=== PATIENT | male | born 1965 | race Caucasian/White ===

== ENCOUNTER → 2016-11-03 | Outpatient (CLI) | payer OTHER ==
[2016-11-03 17:57] LABS: BLOOD UREA NITROGEN 19 mg/dl (7-18); BUN/CREATININE RATIO 20.1 (10-20); CALCIUM 9.6 mg/dl (8.5-10.1); CARBON DIOXIDE 29 mmol/L (21-32); CHLORIDE 105 mmol/L (98-107); CREATININE 0.96 mg/dl (0.60-1.40); GLUCOSE 98 mg/dl (70-99); SODIUM 140 mmol/L (136-145)
[2016-11-03 18:01] LABS: PROSTATE SPECIFIC ANTIGEN 0.735 ng/ml (0.000-4.000)
== END | disposition home or self-care (01) ==
LOC: C.LABMFLN 11:17
PROVIDERS: ATTEND Family Medicine
DX: M54.2 Cervicalgia (principal); I10 Essential (primary) hypertension; E29.1 Testicular hypofunction; Z12.5 Encounter for screening for malignant neoplasm of prostate

== ENCOUNTER 2020-05-22 15:49 | Observation (INO) ==
[2020-05-22] MEDS ORDERED: KETOROLAC TROMETHAMINE 15 MG/ML VIAL IV ONE (16:17)
[2020-05-22] MEDS ORDERED: SODIUM CHLORIDE 0.9% 1000ML 1,000 ML IV ONE (16:21)
[2020-05-22] MEDS ORDERED: cefTRIAXone SODIUM 1,000 MG/50 ML BAG IV STA (16:21)
--- NOTE | 2020-05-22 16:21 | Emergency Department Note ---
Impression & Plan Cellulitis, Acute foot pain, Febrile ED Provider Note NAME: DENNISE CALDERON AGE: 55 SEX: M : 1965 ARRIVES VIA: Walk-In INFORMANT: Patient ED PROVIDER(S): Nathan Joseph DO CHIEF COMPLAINT: Right leg pain HPI: Patient is a 55-year-old male who presents the ER for right lower extremity pain which has been present for the past 2 days. He denies all other complaints. Been gradually getting worse. He has a fair amount of pain with walking and notes that he can barely walk on it. Today pain is now 8/10. He denies any fevers. Majority of the pain is between the first and second digits. Significantly worse with walking. Denies any head pain, neck pain, chest pain, shortness of breath nausea vomiting diarrhea. No dysuria urgency or frequency. ROS: See above HPI for pertinent positives & negatives. A total of 10 systems reviewed and were otherwise negative. PAST MEDICAL HISTORY:See Below PAST SURGICAL HISTORY:See Below FAMILY HISTORY:See Below SOCIAL HISTORY:See Below HOME MEDICATIONS:See Below ALLERGIES:See Below VITALS:See Below PHYSICAL EXAMINATION: GENERAL: Sitting up in bed, alert, well appearing, well nourished, no distress, non-toxic EYE EXAM: normal conjunctiva. OROPHARYNX: no exudate, no erythema, lips, buccal mucosa, and tongue normal and mucous membranes are moist NECK: supple, no nuchal rigidity, no adenopathy, non-tender LUNGS: Clear to auscultation. Normal chest wall mechanics HEART: no murmurs, S1 normal and S2 normal ABDOMEN: abdomen soft, non-tender, normo-active bowel sounds, no masses, no rebound or guarding. UPPER EXTREMITIES: upper extremities are grossly normal. LOWER EXTREMITIES: Right calf and thigh larger than left. DPs and PTs 2 out of 4. Gross sensation intact. Erythema around the first and second metatarsals with acute tenderness palpation. Achilles is intact. NEURO EXAM: Normal sensorium, cranial nerves II-XII grossly intact, normal speech, no gross weakness of arms, no gross weakness of legs. MEDICAL DECISION MAKING: Patient is a 55-year-old male who presents to the for right lower extremity pain. IV was established blood work was obtained. Labs show no significant leukocytosis or anemia. BMP with mild natremia. LFTs bilirubin was unremarkable. Lactate was normal. Ultrasound of the right lower extremity was negative. X-rays show breakdown of the first metatarsal. Patient did have a temperature 37.9. Patient was given IV Rocephin with this. He does have overlying erythema. Is acutely tender. Do favor that this is likely osteoarthritis as opposed to osteomyelitis. Otherwise patient is clinically tender there and unable to walk. I considered gout but has he was febrile. This is less likely. Patient was given the IV antibiotics and updated bedside discussed with the hospitalist for further evaluation. Triage Nursing notes reviewed. Prior medical records reviewed Vital Signs: reviewed and remarkable for fever Differential diagnosis: Differential diagnosis includes etiologies such as sepsis, UTI, pneumonia, metabolic, electrolyte abnormalities, cardiac sources, intracerebral event, toxicologic, neurological, as well as others were entertained. ER treatment provided: See below Diagnostics interpreted by me: ECG: none Cardiac Monitoring: An order was placed for continuous cardiac monitoring. The monitor shows a rate of 70 with sinus rhythm. Laboratory studies: As stated above and show below. Imaging studies: His Doppler was negative X-rays of the right foot show no acute fractures Consultation(s): Discussed with Valencia Urbano for further evaluation ED COURSE: Procedures: none Critical Care: None Past Med/Surg History Medical History (Updated 05/22/20 @ 19:43 by Nathan Joseph DO) Brain tumor Fibromyalgia HTN (hypertension) Hx of fall Orbit fracture Surgical History (Updated 06/18/18 @ 15:42 by Arabella Cash) H/O brain surgery History of brain shunt Family History Other No known problems Social History Smoking Status: Never smoker Hx Alcohol Use: No Hx Substance Use: No Preferred Language: Wolof Communication Ability: Effective Visual Impairment: No Limitations Rubber Liner Required: No Beliefs That Will Affect Care: Jewish Jewish Beliefs: Taoist marital status: Current Living Situation: Spouse current occupational status: unemployed and disabled current occupation: On disability Feels Safe at Home: Yes Assistive Devices: Walker Allergies Allergies Allergy/AdvReac Type Severity Reaction Status Date / Time gabapentin AdvReac Unknown Did not Verified 05/22/20 19:03 feel well Home Meds Home Medications Medication Instructions Recorded Confirmed lisinopril 40 mg PO QAM 02/24/19 05/22/20 sildenafil (pulm.hypertension) 20 mg PO DIRECTED PRN 02/24/19 05/22/20 aspirin [Aspirin Low Dose] 81 mg PO QAM 05/22/20 05/22/20 atorvastatin 20 mg PO QAM 05/22/20 05/22/20 chlorthalidone 12.5 mg PO QAM 05/22/20 05/22/20 oxycodone-acetaminophen 1 tab PO BID PRN 05/22/20 05/22/20 sertraline 100 mg PO QAM 05/22/20 05/22/20 Results & Data (ED) Vital Signs Vital Signs - 24 hr 05/22/20 15:57 05/22/20 18:16 05/22/20 18:27 Temperature 37.9 C H Temperature Source Oral Pulse Rate 86 71 73 Pulse Rate from SpO2 Sensor 72 74 Respiratory Rate 18 15 14 Respiratory Effort / Characteristics Non-Labored Spontaneous Respiratory Depth Normal Blood Pressure 138/74 136/76 Blood Pressure Mean 95 93 Blood Pressure Position Sitting Pulse Oximetry 95 93 94 Oxygen Delivery Method Room Air Sepsis Recent Fever Within 48 Hours No Sepsis New/Unexplained Change in Mental Status No Sepsis Action Taken by Nursing No Action Required 05/22/20 18:30 Temperature Temperature Source Pulse Rate 72 Pulse Rate from SpO2 Sensor 73 Respiratory Rate 18 Respiratory Effort / Characteristics Respiratory Depth Blood Pressure 142/78 H Blood Pressure Mean 99 Blood Pressure Position Pulse Oximetry 94 Oxygen Delivery Method Room Air Sepsis Recent Fever Within 48 Hours Sepsis New/Unexplained Change in Mental Status Sepsis Action Taken by Nursing Laboratory Data Result diagrams: 05/22/20 16:25 05/22/20 16:25 Lab Results 05/22/20 05/22/20 05/22/20 Range/Units 16:25 16:25 16:25 WBC 8.64 (4.8-10.8) K/uL RBC 4.70 (4.7-6.1) M/uL Hgb 14.5 (14.0-18.0) g/dL Hct 41.4 L (42-52) % MCV 88.1 (80-100) fL MCH 30.9 (25-34) pg MCHC 35.0 (32-36) g/dL RDW Std Deviation 45.2 (36.4-46.3) fL RDW Coeff of Manish 14.0 (11.5-14.5) % Plt Count 229 (130-400) K/uL MPV 9.6 (7.4-10.4) fL Immature Gran % (Auto) 0.6 % Neut % (Auto) 66.6 % Lymph % (Auto) 18.2 % Cass % (Auto) 14.1 % Eos % (Auto) 0.2 % Baso % (Auto) 0.3 % Neut # (Auto) 5.75 (1.4-6.5) K/uL Lymph # (Auto) 1.57 (1.2-3.4) K/uL Cass # (Auto) 1.22 H (0.11-0.59) K/uL Eos # (Auto) 0.02 (0-0.5) K/uL Baso # (Auto) 0.03 (0-0.2) K/uL Immature Gran # (Auto) 0.05 H (0.00-0.02) K/uL Sodium 135 L (136-145) mmol/L Potassium 3.6 (3.5-5.1) mmol/L Chloride 103 (98-107) mmol/L Carbon Dioxide 27 (21-32) mmol/L Anion Gap 6.0 (3-11) BUN 13 (7-18) mg/dl Creatinine 1.24 (0.6-1.4) mg/dl Est Cr Clr Drug Dosing 93.1 ml/min Est GFR ( Amer) 76.4 Est GFR (Non-Af Amer) 66.0 BUN/Creatinine Ratio 10.1 (10-20) Glucose 109 H (70-99) mg/dl Lactate 1.6 (0.4-2.0) mmol/L Calcium 9.5 (8.5-10.1) mg/dl Total Bilirubin 1.1 H (0.2-1) mg/dl AST 21 (15-37) U/L ALT 48 (12-78) U/L Alkaline Phosphatase 79 (45-117) U/L NT-Pro-B Natriuret Pep 28 (0-900) pg/ml Total Protein 7.7 (6.4-8.2) gm/dl Albumin 3.6 (3.4-5.0) gm/dl Globulin 4.1 H (2.5-4.0) gm/dl Albumin/Globulin Ratio 0.9 (0.9-2) Administered Medications Discontinued Medications Sodium Chloride (Nss 1000ml) 1,000 mls @ 999 mls/hr IV .Q1H1M ONE Stop: 05/22/20 17:21 Last Infusion: 05/22/20 17:16 Dose: 0 mls/hr Documented by: [id number] Admin: 05/22/20 16:35 Dose: 999 mls/hr Documented by: [id number] Ceftriaxone Sodium (Rocephin) 1,000 mg in 50 mls @ 100 mls/hr IV NOW STA Stop: 05/22/20 16:50 Last Infusion: 05/22/20 17:16 Dose: 0 mls/hr Documented by: [id number] Admin: 05/22/20 16:34 Dose: 100 mls/hr Documented by: [id number] Ketorolac Tromethamine (Ketorolac Tromethamine 15 Mg/Ml Vial) 15 mg IV NOW ONE Stop: 05/22/20 16:18 Last Admin: 05/22/20 16:33 Dose: 15 mg Documented by: [id number] Discharge Plan Visit Data Chief Complaint: Foot Injury/Pain Stated Complaint: RIGHT FOOT PAIN/SWELLING ED Provider: Nathan Joseph Discharge Problem: Cellulitis, Acute foot pain, Febrile Forms Stand Alone Forms: [facility] Prescriptions Prescriptions: No Action lisinopril 40 mg Tablet 40 mg PO QAM RF: 0 sildenafil (pulm.hypertension) 20 mg Tablet 20 mg PO DIRECTED PRN (Reason: Erectile Dysfunction) RF: 0 atorvastatin 20 mg tablet 20 mg PO QAM RF: 0 sertraline 100 mg tablet 100 mg PO QAM RF: 0 chlorthalidone 25 mg tablet 12.5 mg PO QAM RF: 0 oxycodone-acetaminophen 5-325 mg tablet 1 tab PO BID PRN (Reason: Pain, Severe) RF: 0 aspirin [Aspirin Low Dose] 81 mg Tablet,Delayed Release (Dr/Ec) 81 mg PO QAM RF: 0 Discharge Problem: Cellulitis Qualifiers: Site of cellulitis: unspecified site Qualified Code(s): L03.90 - Cellulitis, unspecified Acute foot pain Qualifiers: Laterality: right Qualified Code(s): M79.671 - Pain in right foot Febrile Qualifiers: Fever type: unspecified Qualified Code(s): R50.9 - Fever, unspecified
[2020-05-22 16:45] LABS: Basophils # (auto) 0.03 K/uL (0-0.2); Basophils % (auto) 0.3 %; Eosinophils # (auto) 0.02 K/uL (0-0.5); Eosinophils % (auto) 0.2 %; Hematocrit (blood only) 41.4 % (42-52); Hemoglobin 14.5 g/dL (14.0-18.0); Immature Granulocytes # (auto) 0.05 K/uL (0.00-0.02); Immature Granulocytes % (auto) 0.6 %; Lymphocytes # (auto) 1.57 K/uL (1.2-3.4); Lymphocytes % (auto) 18.2 %; Mean Corpuscular Hemoglobin 30.9 pg (25-34); Mean Corpuscular Volume 88.1 fL (80-100); Mean Platelet Volume 9.6 fL (7.4-10.4); Monocytes # (auto) 1.22 K/uL (0.11-0.59); Monocytes % (auto) 14.1 %; Neutrophils # (auto) 5.75 K/uL (1.4-6.5); Neutrophils % (auto) 66.6 %; Platelet Count 229 K/uL (130-400); RDW Standard Deviation 45.2 fL (36.4-46.3); White Blood Count 8.64 K/uL (4.8-10.8)
--- NOTE | 2020-05-22 16:50 | XRay Report ---
XR foot RT min 3V routine CLINICAL HISTORY: Right foot pain TRAUMA COMPARISON: None. DISCUSSION: Advanced arthritic changes are present the level the first metatarsal phalangeal joint wi th bony erosive change. There is soft tissue swelling. No acute fractures are visualized. There are n o dislocations. There is moderate dorsal soft tissue swelling. There is plantar calcaneal spurring. T here are calcifications in the region of the distal Achilles tendon. IMPRESSION: 1. No acute fractures 2. Dorsal soft tissue swelling 3. Distal Achilles calcifications suggesting chronic tendinopathy 4. Plantar calcaneal spur 5. Arthritic changes involving the first metatarsal phalangeal joint with bony erosive change ACT 112: Negative or not required by law. Electronically signed by: Tin Koch M.D. 05/22/2020 4:49 PM
[2020-05-22 17:06] LABS: Albumin Level 3.6 gm/dl (3.4-5.0); BUN Creatinine Ratio 10.1 (10-20); Calcium 9.5 mg/dl (8.5-10.1); Creatinine Clr Calc Pharmacy 93.1 ml/min; Est GFR (African American) 76.4; Potassium 3.6 mmol/L (3.5-5.1)
[2020-05-22 17:11] LABS: Albumin Globulin Ratio 0.9 (0.9-2); Bilirubin,Total 1.1 mg/dl (0.2-1); Globulin 4.1 gm/dl (2.5-4.0); Total Protein 7.7 gm/dl (6.4-8.2)
--- NOTE | 2020-05-22 17:50 | Ultrasound Report ---
US venous doppler LE RT CLINICAL HISTORY: Right lower extremity pain and swelling COMPARISON STUDY: No previous studies for comparison. FINDINGS: Real-time and color flow Doppler imaging were performed. Flow was seen within the femoral, popliteal and calf veins with no intraluminal thrombus demonstrated. The saphenous vein is patent. Th ere is focal edema at the level of the dorsal aspect of the foot with a small fluid collection measur ing 13 x 7 x 7 mm. IMPRESSION: No evidence of right lower extremity DVT. ACT 112: Negative or not required by law. Electronically signed by: Tin Koch M.D. 05/22/2020 5:49 PM
--- NOTE | 2020-05-22 20:34 | Communication Note ---
Date of Service: May 22, 2020 Attending Addendum: care coordinated with KELVIN james please refer to her notes for full details, I agree with her notes patient seen and examined, records reviewed by myself as well on exam, patient seen resting, sitting up, not in distress Patient's significant other at the bedside Patient reports moderate to severe pain in the right foot, unable to walk secondary to pain Also has fever/chills at home Reports slow improvement with left foot pain after twisting the left foot 3 weeks ago no other symptoms VS noted and reviewed General- oriented x 3, not in distress, speaks in sentences with no effort or accessory muscle use Head- atraumatic Eyes- PERRL, EOMI, anicteric ENT- oropharynx clear Neck- supple, no JVD, no adenopathy, no thyromegaly; carotids +2/2, no bruits appreciated Lungs- clear to auscultation bilaterally, no rales/wheezes Heart- normal rate, regular rhythm; no murmur, no gallop, no rub appreciated Abdomen- normal bowel sounds, nondistended, soft, nontender, no masses or hepatosplenomegaly Extremities-right foot: Significant edema, moderate erythema, mild warmth, moderate tenderness, full range of motion secondary to pain cracked skin on the heel Right lower extremity: Mild edema, no erythema/warmth/tenderness left foot: Mild edema, no erythema/warmth, poor range of motion secondary to pain Neuro- alert, oriented x 3; CN 2-12 grossly intact; motor 5/5 bilaterally;sensation 100% on all extremities; no other gross focal neurologic deficits skin- warm & dry WBC 8.6 Hg 14.5 Crea 1.2 Foot x-ray: 1. No acute fractures 2. Dorsal soft tissue swelling 3. Distal Achilles calcifications suggesting chronic tendinopathy 4. Plantar calcaneal spur 5. Arthritic changes involving the first metatarsal phalangeal joint with bony erosive change ASSESSMENT AND PLAN Right foot cellulitis No sepsis Blood cultures: Pending CT foot with contrast ordered to rule out abscess Start empiric Dapto plus Zosyn IV fluids Persistent left foot pain Started after patient twisted his left foot and fell No fractures per initial x-ray per patient CT of the left foot also ordered Ortho consulted Hypertension Continue lisinopril other diagnoses and plan of care as per RISK ANALYST Valencia love Plan of care discussed in detail at length with patient and his significant other All questions were answered They are understanding, agreeable, comfortable with plan of care Bob Zaragoza MD
--- NOTE | 2020-05-22 20:37 | History & Physical Report ---
Date of Service May 22, 2020 Assessment & Plan (1) Cellulitis of right foot: -Admit to [facility] -Patient presenting from home with right foot pain and swelling x3 days -No history of trauma -Right foot x-ray negative for acute findings, RLE venous Doppler negative for DVT -Low-grade temp 37.9, no other signs of sepsis -S/p ceftriaxone in the ED, will start IV Dapto and Zosyn for now -consider gout if little improvement after antibiotics -Blood cultures -Right foot CT for further evaluation (2) Left ankle swelling: S/P left ankle sprain ~3 weeks ago -Has been following with podiatry at [facility] -Has not been compliant with boot -Given persistent swelling, check CT -Ortho consult (3) HTN (hypertension): -BP controlled, continue lisinopril and chlorthalidone (4) DVT prophylaxis: -SQ Lovenox History of Present Illness Chief Complaint: Right foot pain Primary Care Provider: Dr. Valencia 55-year-old male with PMH HTN, HLD, history of astrocytoma s/p resection, problems listed below who presents to the ED for evaluation of right foot pain. Patient reports his symptoms began about 3 days ago ports the pain initially began in his heel. Pain has now progressed throughout the plantar surface of the foot and into the right great toe. There also has been progressive swelling. Patient is unable to bear weight on the foot. He denies any known injury to the foot. No fevers or chills. Patient had a left ankle sprain about 3 weeks ago and was following with podiatry at [facility]. He was instructed to wear a boot however has not been wearing it. Swelling to the left ankle and foot has persisted however pain has been slowly improving over the past few weeks. Patient denies chest pain or shortness of breath. No lightheadedness, dizziness, diaphoresis, syncopal events. Denies abdominal pain, nausea, vomiting, diarrhea. No urinary symptoms. In ED, patient has low- grade fever of 37.9. No leukocytosis, patient is hemodynamic stable. Right foot x-ray is negative for acute findings. RLE Doppler negative for DVT. Patient was given IVF, IV ketorolac, IV ceftriaxone. Allergies Allergy/AdvReac Type Severity Reaction Status Date / Time gabapentin AdvReac Unknown Did not Verified 05/22/20 19:03 feel well Home Medications Home Medications Medication Instructions Recorded Confirmed Type lisinopril 40 mg PO QAM 02/24/19 05/22/20 History sildenafil (pulm.hypertension) 20 mg PO DIRECTED PRN 02/24/19 05/22/20 Histor y aspirin [Aspirin Low Dose] 81 mg PO QAM 05/22/20 05/22/20 History atorvastatin 20 mg PO QAM 05/22/20 05/22/20 History chlorthalidone 12.5 mg PO QAM 05/22/20 05/22/20 History oxycodone-acetaminophen 1 tab PO BID PRN 05/22/20 05/22/20 History sertraline 100 mg PO QAM 05/22/20 05/22/20 History Past Med/Surg History Medical History Dyslipidemia History of astrocytoma HTN (hypertension) Surgical History H/O brain surgery H/O inguinal hernia repair History of brain shunt Family History Father Hypertension Mother Hypertension Social History Smoking Status: Never smoker Hx Alcohol Use: No Hx Substance Use: No Preferred Language: Uzbek Communication Ability: Effective Visual Impairment: No Limitations Wet End Tester Required: No Beliefs That Will Affect Care: Taoism Taoism Beliefs: Hinduism marital status: Current Living Situation: Spouse current occupational status: unemployed and disabled current occupation: On disability Feels Safe at Home: Yes Assistive Devices: Walker Review of Systems Review of Systems: ROS per HPI, all other systems reviewed and negative Physical Exam Physical Exam: Please refer to Dr. Zaragoza's addendum for physical exam. Results & Data Results & Data ([facility]) Vital Signs (Past 12 Hours) Vital Signs Temp Pulse Resp BP Pulse Ox 05/22/20 18:30 72 18 142/78 H 94 05/22/20 18:27 73 14 94 05/22/20 18:16 71 15 136/76 93 05/22/20 15:57 37.9 C H 86 18 138/74 95 Laboratory Results Short CBC 05/22/20 Range/Units 16:25 WBC 8.64 (4.8-10.8) K/uL Hgb 14.5 (14.0-18.0) g/dL Hct 41.4 L (42-52) % Plt Count 229 (130-400) K/uL BMP 05/22/20 16:25 Sodium 135 L Potassium 3.6 Chloride 103 Carbon Dioxide 27 BUN 13 Creatinine 1.24 Glucose 109 H Calcium 9.5 Liver Function 05/22/20 Range/Units 16:25 Total Bilirubin 1.1 H (0.2-1) mg/dl AST 21 (15-37) U/L ALT 48 (12-78) U/L Alkaline Phosphatase 79 (45-117) U/L Albumin 3.6 (3.4-5.0) gm/dl Diagnostic Findings RIGHT FOOT X-RAY IMPRESSION: 1. No acute fractures 2. Dorsal soft tissue swelling 3. Distal Achilles calcifications suggesting chronic tendinopathy 4. Plantar calcaneal spur 5. Arthritic changes involving the first metatarsal phalangeal joint with bony erosive change RLE VENOUS DOPPLER IMPRESSION: No evidence of right lower extremity DVT. Code Status & VTE Plan Code Status Patient is a full as per Dr. Zaragoza's discussion with him. VTE Prophylaxis Plan VTE Prophylaxis will be ordered: Yes (1) HTN (hypertension) Hypertension type: unspecified Qualified Code(s): I10 - Essential (primary) hypertension
[2020-05-22] MEDS ORDERED: IOVERSOL 100ml IV ONE (20:49)
--- NOTE | 2020-05-22 21:23 | CT Scan Report ---
CT foot RT w con CT DOSE: 274.45 mGy.cm CLINICAL HISTORY: swelling, cellulitis TECHNIQUE: Patient was scanned in a dynamic helical fashion during intravenous administration of 93 c c of Optiray 320. The study was reviewed in the axial, sagittal, and coronal planes. A dose lowering technique was utilized adhering to the principles of ALARA. COMPARISON STUDY: X-ray study dated 05/22/2020 FINDINGS: There is diffuse soft tissue edema. There is enlargement of the Achilles tendon indicative of Karina s tendinopathy. There is calcaneal spurring. No acute fractures are visualized. There are advanced arthritic changes at the level the first metatarsal phalangeal joint with osteophy tic spurring and subchondral cyst formation. There are no destructive changes to indicate osteomyelitis. IMPRESSION: 1. Diffuse soft tissue edema. No evidence of abscess 2. No acute fractures 3. Achilles tendinopathy 4. Advanced arthritic changes the level the first metatarsal phalangeal joint with osteophytic spurri ng and subchondral cyst formation ACT 112: Negative or not required by law. Electronically signed by: Tin Koch M.D. 05/22/2020 9:21 PM
[2020-05-22] MEDS ORDERED: oxyCODONE/ACETAMINOPHEN 5mg/325mg TAB PO PRN (21:24)
[2020-05-22] MEDS ORDERED: MoRPHine SULFATE 4 MG/ML 1 ML CARP\\VIAL IV PRN (21:24)
[2020-05-22] MEDS ORDERED: PIPERACILL/TAZOBAC CONSULT ACTIVE PRN (21:24)
--- NOTE | 2020-05-22 21:35 | CT Scan Report ---
CT foot LT w con CT DOSE: CLINICAL HISTORY: Left foot swelling TECHNIQUE: The patient was scanned in a dynamic helical fashion during intravenous administration of 93 cc of Optiray 320. Sagittal and coronal reformatted images were acquired A dose lowering techniqu e was utilized adhering to the principles of ALARA. COMPARISON STUDY: None. FINDINGS: There is soft tissue edema. The Achilles tendon is enlarged with calcifications consistent with Achilles tendinopathy. There are no fluid collections to indicate an abscess. There is no evidence of osteomyelitis. There are no acute fractures. IMPRESSION: 1. Diffuse soft tissue edema 2. No evidence of abscess 3. No acute fractures 4. Achilles tendinopathy ACT 112: Negative or not required by law. Electronically signed by: Tin Koch M.D. 05/22/2020 9:34 PM
[2020-05-22] MEDS: ENOXAPARIN INJ 40 MG/0.4 ML SYR SQ SCH (21:58)
[2020-05-22] MEDS: SODIUM CHLORIDE 0.9% 1000ML 1,000 ML IV SCH (21:58)
[2020-05-22] MEDS ORDERED: PIPERACILLIN/TAZOBACTAM 4.5 GM in DEXTROSE 5% 100 ML IV ONE (22:00)
[2020-05-22] MEDS ORDERED: DAPTOmycin 375 MG in SYRINGE 0 ML IV SCH (22:00)
[2020-05-23] MEDS: PIPERACILLIN/TAZOBACTAM 4.5 GM in DEXTROSE 5% 100 ML IV SCH ×3 (04:18→20:21)
[2020-05-23 06:03] LABS: Hematocrit (blood only) 36.6 % (42-52); Hemoglobin 12.5 g/dL (14.0-18.0); Mean Corpuscular Hgb Conc 34.2 g/dL (32-36); Mean Platelet Volume 9.6 fL (7.4-10.4); Platelet Count 221 K/uL (130-400); Red Blood Count 4.16 M/uL (4.7-6.1); White Blood Count 7.29 K/uL (4.8-10.8)
[2020-05-23 06:31] LABS: BUN Creatinine Ratio 14.2 (10-20); Calcium 8.7 mg/dl (8.5-10.1); Est GFR (African American) 93.5; Est GFR (Non-African American) 80.7; Potassium 3.5 mmol/L (3.5-5.1)
[2020-05-23] MEDS: SODIUM CHLORIDE 0.9% 1000ML 1,000 ML IV SCH ×2 (08:13→18:27)
[2020-05-23] MEDS: SERTRALINE HCL 100 MG TABLET PO SCH (08:22)
[2020-05-23] MEDS: ADVANCED PROBIOTIC 1250 MG CAPSULE PO SCH (08:22)
[2020-05-23] MEDS: ASPIRIN 81 MG ECTAB PO SCH (08:22)
[2020-05-23] MEDS: lisinopril 40 MG TAB PO SCH (08:22)
[2020-05-23] MEDS ORDERED: CHLORTHALIDONE 25 MG TAB PO SCH (09:00)
[2020-05-23] MEDS ORDERED: predniSONE 20 MG TAB PO ONE (15:00)
--- NOTE | 2020-05-23 15:59 | Orthopedic Consultation ---
Date of Consultation May 23, 2020 Assessment & Plan (1) Left Achilles tendinitis: Likely left Achilles tendinitis. With the patient's amount of pain he is having with palpation at the insertion site, consider starting an anti- inflammatory like Celebrex daily. Consider physical therapy to help with teaching the patient stretches to help alleviate his discomfort. I will have Dr. Liao review the CT scans and see the patient this afternoon. History of Present Illness Reason for Consultation: Left ankle pain Attending Physician: Eliseo Velarde MD History of Present Illness Patient is a 55-year-old male with PMH HTN, HLD, history of astrocytoma s/p resection that [facility] During his [facility], he had complained of left ankle pain as well. Patient states that he had injured his left ankle approximately 3 weeks ago that resulted in a sprain. He states that there was a small avulsion type chip fracture noted on films that were taken in [place] but no other bony injury. He was prescribed a high tide walking boot however the patient has not been using it secondary to worsening his gait disturbance. Patient states that he has balance issues since he has had his astrocytoma removed and uses a walker in the house and a walking stick when he is outside on a limited basis. He states that he has had problems with his feet ever since he has had gait disturbances. Today he notes that he has had much less pain in the left ankle and for the first time was able to weight-bear on the left ankle late this morning. He states overall it is feeling better. Allergies Allergy/AdvReac Type Severity Reaction Status Date / Time gabapentin AdvReac Unknown Did not Verified 05/22/20 19:03 feel well Home Medications Home Medications Medication Instructions Recorded Confirmed Type lisinopril 40 mg PO QAM 02/24/19 05/22/20 History sildenafil (pulm.hypertension) 20 mg PO DIRECTED PRN 02/24/19 05/22/20 History aspirin [Aspirin Low Dose] 81 mg PO QAM 05/22/20 05/22/20 History atorvastatin 20 mg PO QAM 05/22/20 05/22/20 History chlorthalidone 12.5 mg PO QAM 05/22/20 05/22/20 History oxycodone-acetaminophen 1 tab PO BID PRN 05/22/20 05/22/20 History sertraline 100 mg PO QAM 05/22/20 05/22/20 History Patient History Medical History Dyslipidemia History of astrocytoma HTN (hypertension) Surgical History H/O brain surgery H/O inguinal hernia repair History of brain shunt Family History Father Hypertension Mother Hypertension Social History Smoking Status: Never smoker Second Hand Exposure: No; Do You Dip or Chew Tobacco: No; Tobacco Cessation Education Requested by Patient: No Hx Alcohol Use: Yes Alcohol type: beer Hx Substance Use: No Preferred Language: Australian Communication Ability: Effective Visual Impairment: No Limitations Central Services Tech Required: No Beliefs That Will Affect Care: None marital status: Current Living Situation: Spouse current occupational status: unemployed and disabled current occupation: On disability Other Information That Helps Us Care for You: No Feels Safe at Home: Yes Assistive Devices: Walker Review of Systems Review of Systems: All systems reviewed & are unremarkable except as noted in HPI & below Physical Exam Physical Exam: Patient is awake, alert, and oriented x3. Focusing the exam on the left lower extremity, I removed his sock on the left foot. He has minimal swelling around the ankle at this time and there is no areas of ecchymosis noted. No erythema noted. He is nontender on palpation over the medial and lateral malleoli. He is able to take the ankle through active flexion and plantarflexion without pain. On palpation of his Achilles tendon, I cannot appreciate any tears and is nontender until you get out to the Achilles tendon insertion into the calcaneus. On palpation of this area the patient does have moderate pain. No pain on palpation of his left heel and plantar surface. No pain on the dorsum of the foot. Forced dorsiflexion does essentially accentuate the pain at the Achilles insertion somewhat. Results & Data ([facility]) Vital Signs (Past 12 Hours) Vital Signs Temp Pulse Resp BP Pulse Ox 05/23/20 10:00 117/71 05/23/20 08:25 37.7 C H 75 17 174/82 H 94 Diagnostic Findings Patient: DENNISE CALDERON AAdmit Date: 05/22/20 MR#: [id number]: [id number] [place] [address] Acct ID:[id number]: Date: [address] Zip: [place] [address] Age: 55Location: 3E Sex: MRoom[facility]Bed: [facility] Att Phy: Bob Zaragoza, HUGOiagnosis: RIGHT FOOT PAIN Mignon Phy: PCP,Clemrvice Date: 05/22/20 Fam Phy: Dagoberto Valencia MDInterpreting Phy: Tin Koch MD Admit Phy: Bob Zaragoza MD Ordering Phy: Valencia Urbano cc: ~ CT foot LT w con CT DOSE: CLINICAL HISTORY: Left foot swelling TECHNIQUE: The patient was scanned in a dynamic helical fashion during intravenous administration of 93 cc of Optiray 320. Sagittal and coronal re formatted images were acquired A dose lowering technique was utilized adhering to the principles of ALARA. COMPARISON STUDY: None. FINDINGS: There is soft tissue edema. The Achilles tendon is enlarged with calcifications consistent with Achilles tendinopathy. There are no fluid collections to indicate an abscess. There is no evidence of osteomyelitis. There are no acute fractures. IMPRESSION: 1. Diffuse soft tissue edema 2. No evidence of abscess 3. No acute fractures 4. Achilles tendinopathy
--- NOTE | 2020-05-23 16:19 | Hospitalist Progress Note ---
Date of Service May 23, 2020 Assessment & Plan (1) Cellulitis of right foot: Right lower extremity cellulitis Left Achilles tendinitis -Right Foot CT:Diffuse soft tissue edema. No evidence of abscess. No acute fractures. Achilles tendinopathy. Advanced arthritic changes the level the first metatarsal phalangeal joint with osteophytic spurring and subchondral cyst formation -Left Foot CT:Diffuse soft tissue edema. No evidence of abscess. No acute fractures. Achilles tendinopathy -Venous Doppler:No evidence of right lower extremity DVT. -MRSA screen: Negative -Blood Culture:Pending -Continue Zosyn -Transition Daptomycin to Doxycycline -PT/OT -Start low dose prednisone -Appreciate Orthopedics Input (2) Left ankle swelling: S/P left ankle sprain ~3 weeks ago Follows with podiatry at [facility] Not been compliant with boot Management as above (3) HTN (hypertension): BP Variable continue lisinopril and chlorthalidone (4) DVT prophylaxis: SQ Lovenox Admission and Anticipated Discharge Date Admission Date: May 22, 2020 Subjective Patient is seen and examined at bedside Has low-grade fever this morning Leg pain, erythema improving Still has leg swelling Denies chest pain, SOB, dizziness, nausea, abdominal pain Family at bedside Offers no other complaints Review of Systems Review of Systems: All systems reviewed & are unremarkable except as noted in HPI & below Physical Exam Physical Exam: Physical Exam: Vitals signs as noted above General Appearance:Moderately built and nourished, no apparent distress Head: normocephalic, Atraumatic Eyes: normal inspection, EOMI Neck: supple, Trachea midline Respiratory/Chest: Normal breath sounds, CTA Cardiovascular: S1, S2, No murmur Abdomen/GI:Soft, Non tender, Bowel sounds present Extremities/Musculoskelatal:normal inspection, Right leg swelling Neurologic/Psych:AAOX3, grossly no focal neurological deficits Skin: normal color, warm Results & Data Results & Data ([facility]) Vital Signs (Past 12 Hours) Vital Signs Temp Pulse Resp BP Pulse Ox 05/23/20 16:05 37 C 70 20 130/85 96 05/23/20 10:00 117/71 05/23/20 08:25 37.7 C H 75 17 174/82 H 94 Laboratory Results Short CBC 05/22/20 05/23/20 Range/Units 16:25 05:41 WBC 8.64 7.29 (4.8-10.8) K/uL Hgb 14.5 12.5 L (14.0-18.0) g/dL Hct 41.4 L 36.6 L (42-52) % Plt Count 229 221 (130-400) K/uL BMP 05/22/20 05/23/20 16:25 05:41 Sodium 135 L 139 Potassium 3.6 3.5 Chloride 103 107 Carbon Dioxide 27 25 BUN 13 15 Creatinine 1.24 1.05 Glucose 109 H 105 H Calcium 9.5 8.7 Liver Function 05/22/20 Range/Units 16:25 Total Bilirubin 1.1 H (0.2-1) mg/dl AST 21 (15-37) U/L ALT 48 (12-78) U/L Alkaline Phosphatase 79 (45-117) U/L Albumin 3.6 (3.4-5.0) gm/dl (1) HTN (hypertension) Hypertension type: unspecified Qualified Code(s): I10 - Essential (primary) hypertension
[2020-05-23] MEDS ORDERED: MoRPHine SULFATE 4 MG/ML 1 ML CARP\\VIAL IV PRN (17:17)
[2020-05-23] MEDS: oxyCODONE/ACETAMINOPHEN 5mg/325mg TAB PO PRN (17:24)
[2020-05-23] MEDS: DOXYCYCLINE HYCLATE 100 MG CAP PO SCH (20:22)
[2020-05-23] MEDS: ENOXAPARIN INJ 40 MG/0.4 ML SYR SQ SCH (21:12)
[2020-05-24] MEDS: ACETAMINOPHEN 325 MG TAB PO PRN ×2 (00:18→13:20)
[2020-05-24] MEDS: PIPERACILLIN/TAZOBACTAM 4.5 GM in DEXTROSE 5% 100 ML IV SCH ×3 (03:21→20:31)
[2020-05-24 06:24] LABS: Hemoglobin 12.8 g/dL (14.0-18.0); Mean Corpuscular Hemoglobin 30.1 pg (25-34); Mean Corpuscular Hgb Conc 34.6 g/dL (32-36); Mean Corpuscular Volume 87.1 fL (80-100); Mean Platelet Volume 9.5 fL (7.4-10.4); Platelet Count 241 K/uL (130-400); RDW Coefficient of Variation 13.8 % (11.5-14.5); RDW Standard Deviation 43.6 fL (36.4-46.3); Red Blood Count 4.25 M/uL (4.7-6.1)
[2020-05-24 06:52] LABS: BUN Creatinine Ratio 16.5 (10-20); Est GFR (African American) 93.5; Est GFR (Non-African American) 80.7; Magnesium 2.1 mg/dl (1.8-2.4); Potassium 3.8 mmol/L (3.5-5.1)
[2020-05-24] MEDS: oxyCODONE/ACETAMINOPHEN 5mg/325mg TAB PO PRN ×2 (07:27→16:24)
[2020-05-24] MEDS: DOXYCYCLINE HYCLATE 100 MG CAP PO SCH ×2 (08:42→20:32)
[2020-05-24] MEDS: lisinopril 40 MG TAB PO SCH (08:42)
[2020-05-24] MEDS: SERTRALINE HCL 100 MG TABLET PO SCH (08:43)
[2020-05-24] MEDS: ASPIRIN 81 MG ECTAB PO SCH (08:43)
[2020-05-24] MEDS: ADVANCED PROBIOTIC 1250 MG CAPSULE PO SCH (08:43)
[2020-05-24] MEDS: ATORVASTATIN 20 MG TAB PO SCH (08:59)
[2020-05-24] MEDS ORDERED: predniSONE 20 MG TAB PO SCH (09:00)
--- NOTE | 2020-05-24 12:44 | Orthopedic Progress Note ---
Date of Service May 24, 2020 Assessment & Plan (1) Left Achilles tendinitis: Pain in his left foot is consistent with Achilles tendinopathy recommend therapy, stretching, and anti-inflammatories. (2) Cellulitis of right foot: His right foot swelling seems to have improved with antibiotics and steroids. No evidence of abscess on clinical exam or imaging. His pain is much improved. No indication for surgical intervention at this time. Admission and Anticipated Discharge Date Admission Date: May 23, 2020 Subjective Patient reports that his right foot pain and swelling have significantly improved. He complains that his left heel is now more painful than his right this morning. He seems to have improved with steroids. Physical Exam Physical Exam: Examination of the right foot reveals some diffuse soft tissue swelling and edema, but no significant warmth, erythema, or induration. No fluctuance anywhere around the foot. Very mild diffuse tenderness to palpation. No focal tenderness. Examination of the left foot reveals no significant diffuse swelling. He is very focally tender to palpation at the Achilles tendon insertion into the calcaneus. Results & Data ([facility]) Vital Signs (Past 12 Hours) Vital Signs Temp Pulse Resp BP Pulse Ox 05/24/20 07:03 36.4 C L 60 19 145/93 H 95
--- NOTE | 2020-05-24 16:32 | Hospitalist Progress Note ---
Date of Service May 24, 2020 Assessment & Plan (1) Cellulitis of right foot: Right lower extremity cellulitis Left Achilles tendinitis -Right Foot CT:Diffuse soft tissue edema. No evidence of abscess. No acute fractures. Achilles tendinopathy. Advanced arthritic changes the level the first metatarsal phalangeal joint with osteophytic spurring and subchondral cyst formation -Left Foot CT:Diffuse soft tissue edema. No evidence of abscess. No acute fractures. Achilles tendinopathy -Venous Doppler:No evidence of right lower extremity DVT. -MRSA screen: Negative -Blood Culture:No growth to date -Continue Zosyn for now -Transitioned Daptomycin to Doxycycline -Continue PT/OT -Taper off of prednisone as able -Appreciate Orthopedics Input -Continue Stretching for tendinopathy (2) Left ankle swelling: S/P left ankle sprain ~3 weeks ago Follows with podiatry at [facility] Not been compliant with boot Management as above (3) HTN (hypertension): BP slightly elevated continue lisinopril and chlorthalidone (4) DVT prophylaxis: SQ Lovenox Admission and Anticipated Discharge Date Admission Date: May 23, 2020 Subjective Patient is seen and examined at bedside Afebrile today Leg pain continues to improve Leg swelling improved as well Discussed with Orthopedics today Poor sleep overnight Denies chest pain, SOB, dizziness, nausea, abdominal pain Review of Systems Review of Systems: All systems reviewed & are unremarkable except as noted in HPI & below Physical Exam Physical Exam: Physical Exam: Vitals signs as noted above General Appearance:Moderately built and nourished, no apparent distress Head: normocephalic, Atraumatic Eyes: normal inspection, EOMI Neck: supple, Trachea midline Respiratory/Chest: Normal breath sounds, CTA Cardiovascular: S1, S2, No murmur Abdomen/GI:Soft, Non tender, Bowel sounds present Extremities/Musculoskelatal:normal inspection, Right leg swelling improving Neurologic/Psych:AAOX3, grossly no focal neurological deficits Skin: normal color, warm Results & Data Results & Data ([facility]) Vital Signs (Past 12 Hours) Vital Signs Temp Pulse Resp BP Pulse Ox 05/24/20 16:10 36.8 C 68 18 155/98 H 95 05/24/20 07:03 36.4 C L 60 19 145/93 H 95 Laboratory Results Short CBC 05/24/20 Range/Units 05:58 WBC 6.70 (4.8-10.8) K/uL Hgb 12.8 L (14.0-18.0) g/dL Hct 37.0 L (42-52) % Plt Count 241 (130-400) K/uL BMP 05/24/20 05:58 Sodium 140 Potassium 3.8 Chloride 109 H Carbon Dioxide 24 BUN 17 Creatinine 1.05 Glucose 115 H Calcium 9.0 (1) HTN (hypertension) Hypertension type: unspecified Qualified Code(s): I10 - Essential (primary) hypertension
[2020-05-24] MEDS: ENOXAPARIN INJ 40 MG/0.4 ML SYR SQ SCH (22:22)
[2020-05-25] MEDS: PIPERACILLIN/TAZOBACTAM 4.5 GM in DEXTROSE 5% 100 ML IV SCH ×2 (04:08→13:01)
[2020-05-25] MEDS: oxyCODONE/ACETAMINOPHEN 5mg/325mg TAB PO PRN (04:15)
[2020-05-25 06:51] LABS: BUN Creatinine Ratio 18.9 (10-20); Calcium 9.3 mg/dl (8.5-10.1); Creatinine Clr Calc Pharmacy 106.9 ml/min; Est GFR (African American) 87.4; Est GFR (Non-African American) 75.4; Potassium 3.3 mmol/L (3.5-5.1)
[2020-05-25] MEDS: ADVANCED PROBIOTIC 1250 MG CAPSULE PO SCH (08:42)
[2020-05-25] MEDS: ATORVASTATIN 20 MG TAB PO SCH (08:42)
[2020-05-25] MEDS: lisinopril 40 MG TAB PO SCH (08:42)
[2020-05-25] MEDS: ASPIRIN 81 MG ECTAB PO SCH (08:42)
[2020-05-25] MEDS: SERTRALINE HCL 100 MG TABLET PO SCH (08:43)
[2020-05-25] MEDS: DOXYCYCLINE HYCLATE 100 MG CAP PO SCH (08:43)
[2020-05-25] MEDS ORDERED: POTASSIUM CHLORIDE 20 MEQ TABCR PO ONE (08:56)
[2020-05-25] MEDS ORDERED: predniSONE 10 MG TABLET PO SCH (09:00)
--- NOTE | 2020-05-25 12:28 | Hospitalist Progress Note ---
Date of Service May 25, 2020 Assessment & Plan (1) Cellulitis of right foot: Right lower extremity cellulitis Left Achilles tendinitis -Right Foot CT:Diffuse soft tissue edema. No evidence of abscess. No acute fractures. Achilles tendinopathy. Advanced arthritic changes the level the first metatarsal phalangeal joint with osteophytic spurring and subchondral cyst formation -Left Foot CT:Diffuse soft tissue edema. No evidence of abscess. No acute fractures. Achilles tendinopathy -Venous Doppler:No evidence of right lower extremity DVT. -MRSA screen: Negative -Blood Culture:No growth to date -Received Zosyn .Transition to Augmentin -Transitioned Daptomycin to Doxycycline -Continue PT/OT-Recommends to return home -Taper off of prednisone as able -Appreciate Orthopedics Input -Continue Stretching for tendinopathy -Needs follow up with Orthopedics upon discharge (2) Left ankle swelling: S/P left ankle sprain ~3 weeks ago Follows with podiatry at [facility] Not been compliant with boot Management as above (3) HTN (hypertension): BP slightly elevated continue lisinopril and chlorthalidone (4) DVT prophylaxis: SQ Lovenox Admission and Anticipated Discharge Date Admission Date: May 23, 2020 Subjective Patient is seen and examined at bedside Doing much better today Leg pain/swelling much less Was able to ambulate Denies chest pain, SOB, dizziness, nausea, abdominal pain Family at bedside No new complaints Review of Systems Review of Systems: All systems reviewed & are unremarkable except as noted in HPI & below Physical Exam Physical Exam: Physical Exam: Vitals signs as noted above General Appearance:Moderately built and nourished, no apparent distress Head: normocephalic, Atraumatic Eyes: normal inspection, EOMI Neck: supple, Trachea midline Respiratory/Chest: Normal breath sounds, CTA Cardiovascular: S1, S2, No murmur Abdomen/GI:Soft, Non tender, Bowel sounds present Extremities/Musculoskelatal:normal inspection, Right leg swelling much improved Neurologic/Psych:AAOX3, grossly no focal neurological deficits Skin: normal color, warm Results & Data Results & Data ([facility]) Vital Signs (Past 12 Hours) Vital Signs Temp Pulse Resp BP Pulse Ox 05/25/20 07:28 36.3 C L 61 16 147/96 H 98 Laboratory Results [facility] 05/25/20 05:51 Sodium 140 Potassium 3.3 L Chloride 109 H Carbon Dioxide 24 BUN 21 H Creatinine 1.11 Glucose 111 H Calcium 9.3 (1) HTN (hypertension) Hypertension type: unspecified Qualified Code(s): I10 - Essential (primary) hypertension
--- NOTE | 2020-05-25 12:47 | Discharge Summary ---
Date of Service May 25, 2020 Admission HPI Per Admitting Provider 55-year-old male with PMH HTN, HLD, history of astrocytoma s/p resection, problems listed below who presents to the ED for evaluation of right foot pain. Patient reports his symptoms began about 3 days ago ports the pain initially began in his heel. Pain has now progressed throughout the plantar surface of the foot and into the right great toe. There also has been progressive swelling. Patient is unable to bear weight on the foot. He denies any known injury to the foot. No fevers or chills. Patient had a left ankle sprain about 3 weeks ago and was following with podiatry at [facility]. He was instructed to wear a boot however has not been wearing it. Swelling to the left ankle and foot has persisted however pain has been slowly improving over the past few weeks. Patient denies chest pain or shortness of breath. No lightheadedness, dizziness, diaphoresis, syncopal events. Denies abdominal pain, nausea, vomiting, diarrhea. No urinary symptoms. In ED, patient has low- grade fever of 37.9. No leukocytosis, patient is hemodynamic stable. Right foot x-ray is negative for acute findings. RLE Doppler negative for DVT. Patient was given IVF, IV ketorolac, IV ceftriaxone. Admission Exam Per Admitting Provider General- oriented x 3, not in distress, speaks in sentences with no effort or accessory muscle use Head- atraumatic Eyes- PERRL, EOMI, anicteric ENT- oropharynx clear Neck- supple, no JVD, no adenopathy, no thyromegaly; carotids +2/2, no bruits appreciated Lungs- clear to auscultation bilaterally, no rales/wheezes Heart- normal rate, regular rhythm; no murmur, no gallop, no rub appreciated Abdomen- normal bowel sounds, nondistended, soft, nontender, no masses or hepatosplenomegaly Extremities-right foot: Significant edema, moderate erythema, mild warmth, moderate tenderness, full range of motion secondary to pain cracked skin on the heel Right lower extremity: Mild edema, no erythema/warmth/tenderness left foot: Mild edema, no erythema/warmth, poor range of motion secondary to pain Neuro- alert, oriented x 3; CN 2-12 grossly intact; motor 5/5 bilaterally;sensation 100% on all extremities; no other gross focal neurologic deficits skin- warm & dry Principal Diagnosis Right lower extremity cellulitis Left Achilles tendinitis Discharge Data Allergies Allergy/AdvReac Type Severity Reaction Status Date / Time gabapentin AdvReac Unknown Did not Verified 05/22/20 19:03 feel well Consultations 05/22/20 18:31 ED Decision to Admit Stat 05/22/20 21:24 Consult Orthopedic Surgery Routine 05/24/20 14:37 Consult Case Management - Discharge Planning Routine Procedures Performed -Right Foot CT:Diffuse soft tissue edema. No evidence of abscess. No acute fractures. Achilles tendinopathy. Advanced arthritic changes the level the first metatarsal phalangeal joint with osteophytic spurring and subchondral cyst formation -Left Foot CT:Diffuse soft tissue edema. No evidence of abscess. No acute fractures. Achilles tendinopathy -Venous Doppler:No evidence of right lower extremity DVT. Ordered Studies 05/22/20 16:17 US venous doppler LE RT Stat 05/22/20 20:02 CT foot LT w con Routine CT foot RT w con Routine Hospital Course (1) Cellulitis of right foot: Right lower extremity cellulitis Left Achilles tendinitis -Right Foot CT:Diffuse soft tissue edema. No evidence of abscess. No acute fractures. Achilles tendinopathy. Advanced arthritic changes the level the first metatarsal phalangeal joint with osteophytic spurring and subchondral cyst formation -Left Foot CT:Diffuse soft tissue edema. No evidence of abscess. No acute fractures. Achilles tendinopathy -Venous Doppler:No evidence of right lower extremity DVT. -MRSA screen: Negative -Blood Culture:No growth to date -Received Zosyn .Transition to Augmentin -Transitioned Daptomycin to Doxycycline -Continue PT/OT-Recommends to return home -Taper off of prednisone as able -Appreciate Orthopedics Input -Continue Stretching for tendinopathy -Needs follow up with Orthopedics upon discharge (2) Left ankle swelling: S/P left ankle sprain ~3 weeks ago Follows with podiatry at [facility] Not been compliant with boot Management as above (3) HTN (hypertension): BP slightly elevated continue lisinopril and chlorthalidone (4) DVT prophylaxis: SQ Lovenox Total Time Total Time Spent Total Time Spent (In Minutes): 39 minutes Total Time Includes: Examination of the Patient, Discharge Planning, Medication Reconciliation, Communication With Other Providers and Other Discharge Plan Discharge Items Patient Disposition: Home - Self-Care Reason For Visit: RIGHT FOOT PAIN Discharge Diagnosis: Right lower extremity cellulitis Left Achilles tendinitis Activity: Per Instructions section Exercise/Sports: Gradually increase as tolerated Non-emergency contact: Primary Care Provider and Surgeon Call non-emergency contact if: you have any medication questions, your symptoms worsen, your pain is not controlled, your pain is worsening, your pain is unusual for you, your pain is concerning for you and you have a fever Follow-up/Referrals: Dagoberto Valencia MD [Family Provider] - 05/28/20 9:40 am PCP,ARNOL [Primary Care Provider] - Diet: Heart Healthy Addtl Attending Provider Instructions: Follow up with your PCP on 05/28/20 at 9:40 Am as scheduled Follow up with your Orthopedic Surgeon /Fermín in 1-2 weeks as advised. Please call [facility] for appointment [phone] Complete the antibiotic course as prescribed Continue to do the Stretching exercises for tendinopathy as advised Your blood cultures are pending at the time of discharge. Follow-up with your physician for results. Seek immediate medical attention if your symptoms reoccur or worsen Pending Studies at Discharge: Yes Studies:: Blood Cultures Stand-Alone Forms: My [facility] [employer], Smoking Cessation Medications and DC Order Prescriptions: New doxycycline hyclate 100 mg Capsule 100 mg PO BID Qty: 10 RF: 0 Advanced Probiotic 625 mg (10 billion cell) Capsule 2 cap PO DAILY Qty: 30 RF: 0 amoxicillin-pot clavulanate [Augmentin] 500-125 mg tablet 1 tab PO BID Qty: 10 RF: 0 celecoxib [Celebrex] 100 mg capsule 100 mg PO DAILY Qty: 10 RF: 0 Continued lisinopril 40 mg Tablet 40 mg PO QAM RF: 0 sildenafil (pulm.hypertension) 20 mg Tablet 20 mg PO DIRECTED PRN (Reason: Erectile Dysfunction) RF: 0 atorvastatin 20 mg tablet 20 mg PO QAM RF: 0 sertraline 100 mg tablet 100 mg PO QAM RF: 0 chlorthalidone 25 mg tablet 12.5 mg PO QAM RF: 0 oxycodone-acetaminophen 5-325 mg tablet 1 tab PO BID PRN (Reason: Pain, Severe) RF: 0 aspirin [Aspirin Low Dose] 81 mg Tablet,Delayed Release (Dr/Ec) 81 mg PO QAM RF: 0 Discharge Orders: Discharge Order (Routine); Ordered 05/25/20 Ordered By: Eliseo Samuel/Other Patient Handouts: Doxycycline delayed-release capsules Admission Data Admit Date/Time: 05/23/20 18:42 Attending Provider: Eliseo Velarde Admit Provider: Eliseo Velarde Primary Care Provider: PCP,NO Other Providers: Bob Zaragoza ; Sriram Kovacs Other Interventions: Discharge Summary Assessment (RN) Last Done: 05/25/20 14:40
--- NOTE | 2020-05-25 14:56 | Orthopedic Progress Note ---
Date of Service May 25, 2020 Assessment & Plan (1) Left Achilles tendinitis: Pain in his left foot is consistent with Achilles tendinopathy recommend therapy, stretching, and anti-inflammatories. (2) Cellulitis of right foot: His right foot swelling seems to have improved with antibiotics and steroids. No evidence of abscess on clinical exam or imaging. His pain is much improved. No indication for surgical intervention at this time. Admission and Anticipated Discharge Date Admission Date: May 23, 2020 Subjective He reports that the pain and swelling in his right foot has basically completely resolved. He only has some residual pain in the right first MTP joint and left heel currently. Physical Exam Physical Exam: Examination of the right foot reveals minimal soft tissue swelling and edema, improved from yesterday. No significant warmth, erythema, or induration. No fluctuance anywhere around the foot. No significant focal tenderness. Examination of the left foot reveals no significant diffuse swelling. He is very focally tender to palpation at the Achilles tendon insertion into the calcaneus. Results & Data ([facility]) Vital Signs (Past 12 Hours) Vital Signs Temp Pulse Resp BP Pulse Ox 05/25/20 07:28 36.3 C L 61 16 147/96 H 98
== END 2020-05-25 15:41 | disposition home or self-care (01) ==
LOC: ED 15:49 → 3E 15:49 → SUATTDRO 19:41 → 3E 20:36

== ENCOUNTER 2021-11-13 16:49 | Observation (INO) ==
--- NOTE | 2021-11-13 17:28 | Emergency Department Note ---
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 He does have some chronic ataxias issues which were confounded by stroke in 2018. Patient with rapidly worsening symptoms over the last week associated with right sided headache/ear pain, vertigo and spinning, ataxia and difficulty ambulating. Per he is significantly worse than his baseline. Examination is somewhat unremarkable and his right TM looks completely normal at this time. He did obtain an CT of his head which is unremarkable as well as labs/EKG. He declines any medicines for his vertigo symptoms but notes he is having a lot of difficulty walking strai ght. After discussion he would wish to talk to the hospitalist who then ended up hospitalizing patient for further work-up and evaluation. I think this is reasonable given his history of stroke and then significant worsening of the symptoms over the last few days. Given his history and no clear focal neurologic deficits we will hold off on any further anticoagulation at this time as he is already on aspirin daily Prior Medical Record and Triage/Nursing Notes reviewed by Me Additional history obtained from chart & Differentials:Infection, dehydration, metabolic abnormality, hypo/hyperglycemia, electrolyte disturbance, anemia, hypoxia, cardiac sources, intracerebral event, toxicologic, neurologic, as well as other pathologies. Vital Signs: reviewed and remarkable for no significant abnormalities Interventions: declines medications Labs:Reviewed and remarkable for no significant abnormalities Imaging:ct head - no acute findings, chronic findings similar to previous per rads EKG:Per My Interpretation: Indication Stroke like symptoms: NSR 71 bpm, qtc 412. No Ectopy. No Ischemia. Compared to EKG 06/18/18, no significant changes. Consults:Dr Srinivas Gonzales Hospitalist Plan: Disposition:Hospitalization. 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 He notes last few years he is dealt with weakness and dizziness issues on and off. He does have a history of a stroke in 2018 for which he is on aspirin since. Week he has noted significant worsening in his generalized weakness, dizziness, vertiginous symptoms, blurry vision, confusion and a developing right sided headache/ear pain. He notes his right ear feels full. He has had head injury in the last week but he cannot exactly remember what happened other than his right side of his head was hurting afterwards. Did not have a syncopal event and he does not recall falling he thinks he hit his head off something. His says he is just not been acting his normal self. He has not had his normal appetite and is more exhausted. Patient denies any chest pain, shortness of breath, abdominal pain, back pain, urinary/bowel symptoms, leg swelling calf pain or other symptoms. He has been taking no new medications. Any movement seems to make this worse rest and laying back makes it better. Patient declines any medications at this time. ROS: See above HPI for pertinent positives & negatives. A total of 10 systems reviewed and were otherwise negative. Past Medical History:See Below Past Surgical History:See Below Family History:See Below Social History:See Below Home Medications:See Below Allergies:Gabapentin Vitals:Blood Pressure: 170/85, Pulse 81, RR 16, T 36.8C, O2 97% on RA Physical Exam: GENERAL: Patient is tired appearing and in mild distress. EYES: No scleral icterus, unremarkable pupils. ENT: Mucous membranes moist, no nasal congestion. Bilateral TM unremarkable. NECK: No masses appreciated, nomeningismus, trachea is midline. RESPIRATORY: No dyspnea. Clear to auscultation and equal bilaterally. No wheeze, no rhonchi. CARDIOVASCULAR: Regular rate and rhythm.No murmurs, rubs, gallops appreciated. GASTROINTESTINAL: Abdomen soft, non-tender, no peritonitis.Bowel sounds positive.No masses appreciated. BACK: No midline tenderness, no CVA tenderness EXTREMITIES: Normal motion all extremities, no cyanosis, no edema. NEUROLOGIC: Generalized weakness, Alert and oriented, no acute motor or sensory deficits, no focal weakness, cranial nerves grossly intact. SKIN: No rash, no jaundice, no diaphoresis. PSYCH: Appropriate GCS: 15 ED Course: Times/Reassessments: He looks well in no distress agreeable to hospitalist evaluation Jose Salazar MD Past Med/Surg History Medical History (Updated 11/14/21 @ 00:25 by Jose Salazar MD) Dyslipidemia History of astrocytoma HTN (hypertension) Surgical History H/O brain surgery H/O inguinal hernia repair History of brain shunt Family History Father Hypertension Mother Hypertension Social History Smoking Status: Never smoker Second Hand Exposure: No; Hx Alcohol Use: No Hx Substance Use: No Preferred Language: Ivorian Communication Ability: Effective Visual Impairment: No Limitations Dog Pound Attendant Required: No Beliefs That Will Affect Care: None marital status: Current Living Situation: Spouse current occupational status: unemployed and disabled current occupation: On disability Feels Safe at Home: Yes Safety Concerns: Feels Safe At This Time Assistive Devices: Glasses Assistive Devices Comment: walking stick Allergies Allergies Allergy/AdvReac Type Severity Reaction Status Date / Time gabapentin AdvReac Intermediate Did not Verified 11/13/21 17:31 feel well Home Meds Home Medications Medication Instructions Recorded Confirmed lisinopril 40 mg tablet 40 mg PO QAM 02/24/19 11/13/21 sildenafil (pulm.hypertension) 20 20 mg PO DIRECTED PRN 02/24/19 11/13/21 mg tablet aspirin 81 mg tablet,delayed 81 mg PO QAM 05/22/20 11/13/21 release (Aspirin Low Dose) chlorthalidone 25 mg tablet 12.5 mg PO QAM 05/22/20 11/13/21 oxycodone-acetaminophen 5 mg-325 1 tab PO BID PRN 05/22/20 11/13/21 mg tablet sertraline 100 mg tablet 100 mg PO QAM 05/22/20 11/13/21 Results & Data (ED) Vital Signs Vital Signs - 24 hr 11/13/21 16:51 11/13/21 18:20 11/13/21 18:30 Temperature 36.8 C Temperature Source Temporal Artery Scan Pulse Rate 81 72 71 Pulse Rate [Finger] Respiratory Rate 16 16 17 Respiratory Depth Normal Blood Pressure 170/85 H 178/115 H 169/98 H Blood Pressure Mean 113 136 121 Pulse Oximetry 97 Oxygen Delivery Method Room Air Sepsis Recent Fever Within 48 Hours No Sepsis New/Unexplained Change in Mental Status No Sepsis Action Taken by Nursing No Action Required 11/13/21 18:40 11/13/21 18:50 11/13/21 20:00 Temperature Temperature Source Pulse Rate 70 70 Pulse Rate [Finger] Respiratory Rate 14 14 Respiratory Depth Blood Pressure 185/100 H Blood Pressure Mean 128 Pulse Oximetry Oxygen Delivery Method Sepsis Recent Fever Within 48 Hours Sepsis New/Unexplained Change in Mental Status Sepsis Action Taken by Nursing 11/13/21 20:34 Temperature Temperature Source Pulse Rate Pulse Rate [Finger] 73 Respiratory Rate 20 Respiratory Depth Blood Pressure Blood Pressure Mean Pulse Oximetry 95 Oxygen Delivery Method Room Air Sepsis Recent Fever Within 48 Hours Sepsis New/Unexplained Change in Mental Status Sepsis Action Taken by Nursing Laboratory Data Result diagrams: 11/13/21 18:00 11/13/21 18:00 Lab Results 11/13/21 11/13/21 11/13/21 Range/Units 18:00 18:00 19:29 WBC 6.78 (4.8-10.8) K/uL RBC 5.09 (4.7-6.1) M/uL Hgb 15.9 (14.0-18.0) g/dL Hct 45.3 (42-52) % MCV 89.0 (80-100) fL MCH 31.2 (25-34) pg MCHC 35.1 (32-36) g/dL RDW Std Deviation 45.7 (36.4-46.3) fL RDW Coeff of Manish 14.1 (11.5-14.5) % Plt Count 203 (130-400) K/uL MPV 10.3 (7.4-10.4) fL Immature Gran % (Auto) 0.3 % Neut % (Auto) 44.7 % Lymph % (Auto) 46.3 % [place] % (Auto) 7.4 % Eos % (Auto) 0.9 % Baso % (Auto) 0.4 % Neut # (Auto) 3.03 (1.4-6.5) K/uL Lymph # (Auto) 3.14 (1.2-3.4) K/uL [place] # (Auto) 0.50 (0.11-0.59) K/uL Eos # (Auto) 0.06 (0-0.5) K/uL Baso # (Auto) 0.03 (0-0.2) K/uL Immature Gran # (Auto) 0.02 (0.00-0.02) K/uL Sodium 139 (136-145) mmol/L Potassium TNP Chloride 103 (98-107) mmol/L Carbon Dioxide 27 (21-32) mmol/L Anion Gap 9 (3-11) BUN 18 (6-23) mg/dl Creatinine 1.05 (0.6-1.4) mg/dl Est Cr Clr Drug Dosing 107.8 ml/min Est GFR ( Amer) 92.8 ml/min Est GFR (Non-Af Amer) 80.1 ml/min BUN/Creatinine Ratio 17.1 (10-20) Glucose 106 H (70-99(Fasting)) mg/dl Calcium 9.7 (8.5-10.1) mg/dl Magnesium 1.9 (1.7-2.4) mg/dl Troponin I High Sens 6.1 (0-20) pg/ml SARS-CoV-2, RNA, NAAT NEGATIVE (NEGATIVE) Administered Medications Sodium Chloride (Nss 1000ml) 1,000 mls @ 80 mls/hr IV .[id number] FRANK Stop: 11/14/21 23:15 Last Admin: 11/13/21 22:16 Dose: 80 mls/hr Documented by: [id number] Labetalol HCl (Labetalol Hcl Iv 5 Mg/Ml 20ml) 10 mg IV Q4H PRN PRN Reason: Hypertension Stop: 12/13/21 20:51 Last Admin: 11/13/21 21:19 Dose: 10 mg Documented by: [id number] Cosigned by: [id number] Discontinued Medications Clopidogrel Bisulfate (Clopidogrel Bisulfate 75 Mg Tab) 75 mg PO NOW ONE Stop: 11/13/21 20:53 Last Admin: 11/13/21 21:18 Dose: 75 mg Documented by: [id number] Gadobutrol (Gadobutrol 65ml Vial) 12 ml IV ONCE ONE Stop: 11/13/21 23:16 Last Admin: 11/13/21 23:15 Dose: 12 ml Documented by: [id number] Ioversol (Optiray 320 125ml) 120 ml IV ONCE ONE Stop: 11/13/21 23:50 Last Admin: 11/13/21 23:50 Dose: 120 ml Documented by: [id number] Oxycodone/Acetaminophen (Oxycodone/Acetaminophen 5mg/325mg Tab) 1 tab PO NOW STA Stop: 11/13/21 21:08 Last Admin: 11/13/21 21:18 Dose: 1 tab Documented by: [id number] Imaging Data Radiologist's Impression: Head CT 11/13/21 17:19 CT head/brain wo con CLINICAL HISTORY: 56 years-old Male with spining, visual disturbance, right headache. Acute headache with visual disturbance TECHNIQUE: Multiple axial CT images of the head were obtained without contrast. A dose lowering technique was utilized adhering to the principles of ALARA. CT DOSE: 729.78 mGycm COMPARISON: Brain MRI 06/02/2018, head CT 06/18/2018 FINDINGS: No acute intracranial hemorrhage, midline shift, intracranial mass, territorial ischemia or abnormal extra-axial collection. Chronic fourth ventricular dilation. Unchanged positioning of the right posterolateral approach shunt catheter. Postsurgical changes of the posterior fossa with deformity of the brainstem redemonstrated. Significant cerebellar calcifications are again noted. Cerebral vascular and senescent basal ganglia calcifications. The calvarium is intact. Calcified benign-appearing foci of the scalp are again noted. The paranasal sinuses, mastoid air cells, and middle ear cavities are clear. IMPRESSION: 1. No acute intracranial abnormality. 2. Chronic postoperative changes of the posterior fossa and craniocervical junction redemonstrated. There is unchanged dilation of the fourth ventricle with stable positioning of the shunt catheter. 3. Chronic cerebellar parenchymal calcifications. ACT 112: Negative or not required by law. The above report was generated using voice recognition software. It may contain grammatical, syntax or spelling errors. Electronically signed by: Umesh Mckoy M.D. 11/13/2021 6:34 PM Discharge Plan Visit Data Chief Complaint: Vertigo Stated Complaint: EAR INFECTION, VERTIGO, BLURRY VISION ED Provider: Jose Salazar Discharge Problem: Vertigo, Ataxia, Acute pain of right ear Patient Disposition: Admitted As Inpatient Discharge Instructions Interventions: ED Discharge Assessment Last Done: 11/13/21 21:40
[2021-11-13 18:12] LABS: Basophils # (auto) 0.03 K/uL (0-0.2); Basophils % (auto) 0.4 %; Eosinophils # (auto) 0.06 K/uL (0-0.5); Eosinophils % (auto) 0.9 %; Hematocrit (blood only) 45.3 % (42-52); Hemoglobin 15.9 g/dL (14.0-18.0); Immature Granulocytes # (auto) 0.02 K/uL (0.00-0.02); Immature Granulocytes % (auto) 0.3 %; Lymphocytes # (auto) 3.14 K/uL (1.2-3.4); Lymphocytes % (auto) 46.3 %; Mean Corpuscular Hemoglobin 31.2 pg (25-34); Mean Corpuscular Hgb Conc 35.1 g/dL (32-36); Mean Platelet Volume 10.3 fL (7.4-10.4); Monocytes % (auto) 7.4 %; Neutrophils # (auto) 3.03 K/uL (1.4-6.5); Neutrophils % (auto) 44.7 %; Platelet Count 203 K/uL (130-400); RDW Coefficient of Variation 14.1 % (11.5-14.5); RDW Standard Deviation 45.7 fL (36.4-46.3); Red Blood Count 5.09 M/uL (4.7-6.1); White Blood Count 6.78 K/uL (4.8-10.8)
--- NOTE | 2021-11-13 18:36 | CT Scan Report ---
CT head/brain wo con CLINICAL HISTORY: 56 years-old Male with spining, visual disturbance, right headache. Acute headache with visual disturbance TECHNIQUE: Multiple axial CT images of the head were obtained without contrast. A dose lowering tech nique was utilized adhering to the principles of ALARA. CT DOSE: 729.78 mGycm COMPARISON: Brain MRI 06/02/2018, head CT 06/18/2018 FINDINGS: No acute intracranial hemorrhage, midline shift, intracranial mass, territorial ischemia or abnormal extra-axial collection. Chronic fourth ventricular dilation. Unchanged positioning of the right poste rolateral approach shunt catheter. Postsurgical changes of the posterior fossa with deformity of the brainstem redemonstrated. Significant cerebellar calcifications are again noted. Cerebral vascular an d senescent basal ganglia calcifications. The calvarium is intact. Calcified benign-appearing foci of the scalp are again noted. The paranasal sinuses, mastoid air cells, and middle ear cavities are clear. IMPRESSION: 1. No acute intracranial abnormality. 2. Chronic postoperative changes of the posterior fossa and craniocervical junction redemonstrated. T here is unchanged dilation of the fourth ventricle with stable positioning of the shunt catheter. 3. Chronic cerebellar parenchymal calcifications. ACT 112: Negative or not required by law. The above report was generated using voice recognition software. It may contain grammatical, syntax o r spelling errors. Electronically signed by: Umesh Mckoy M.D. 11/13/2021 6:34 PM
[2021-11-13 18:43] LABS: Anion Gap 9 (3-11); BUN Creatinine Ratio 17.1 (10-20); Blood Urea Nitrogen 18 mg/dl (6-23); Calcium 9.7 mg/dl (8.5-10.1); Carbon Dioxide 27 mmol/L (21-32); Chloride 103 mmol/L (98-107); Creatinine Clr Calc Pharmacy 107.8 ml/min; Est GFR (African American) 92.8 ml/min; Est GFR (Non-African American) 80.1 ml/min; Glucose 106 mg/dl (70-99(Fasting)); Magnesium 1.9 mg/dl (1.7-2.4); Sodium 139 mmol/L (136-145); Troponin I High Sensitivity 6.1 pg/ml (0-20)
[2021-11-13] MEDS ORDERED: CLOPIDOGREL BISULFATE 75 MG TAB PO ONE (20:52)
[2021-11-13] MEDS ORDERED: LABETALOL HCL IV 5 MG/ML 20ML IV PRN (20:52)
[2021-11-13] MEDS ORDERED: oxyCODONE/ACETAMINOPHEN 5mg/325mg TAB PO STA (21:07)
--- NOTE | 2021-11-13 21:38 | History and Physical Report ---
DATE OF ADMISSION: 11/13/2021. CHIEF COMPLAINT: Stroke-like symptoms. HISTORY OF PRESENT ILLNESS: This is a 56-year-old male with past medical history significant for hypertriglyceridemia, prediabetes, hyperlipidemia, obstructive sleep apnea, on CPAP, hypertension, Raynaud syndrome, obesity, chronic back pain, depression, mild cognitive impairment, generalized anxiety disorder, history of cellulitis, patient had astrocytoma brain tumor at the ages of 11 and 31, status post resection, history of stroke in 2018 for which he is on aspirin. The patient was on statin, but he states he is not taking it because he is worried about his liver damage and does not want to take it. The patient has chronic balance issues, but last one week he is having room spinning and more imbalance and some blurred vision and double vision, that is the reason he came here. He says his double vision is better. His initial CAT scan was negative. Currently, resting comfortably and hemodynamically stable. Blood pressure is running high. Denies any headache currently. . No runny nose, no sore throat, no cough, no fever, no chills, no chest pain, no shortness of breath, no nausea, no abdominal pain. Normal bowel and bladder movements. No swelling in the legs. He is swallowing okay. ALLERGIES: GABAPENTIN. PAST MEDICAL HISTORY: As mentioned above. PAST SURGICAL HISTORY: LEGAL [employer]OV[employer]IST shunt, injection of lumbosacral spine, partial removal of the brain tumor, removal of shunt system, repair of the eye socket on the right side, inguinal hernia repair on the left side, partial shunt removal. MEDICATIONS: The patient is on aspirin 81 mg p.o. daily, chlorthalidone 12.5 mg p.o. daily, lisinopril 40 mg p.o. daily, oxycodone/acetaminophen 5/325 mg p.o. b.i.d. p.r.n., Zoloft 100 mg p.o. daily. FAMILY HISTORY: Significant for mother has allergies, hypertension; father has arthritis, skin cancer, heart disorder, hypertension; maternal grandmother has diabetes; paternal grandfather, heart disorder; maternal grandfather has hypertension; paternal grandfather has hypertension. SOCIAL HISTORY: , no smoking, alcohol rare, no drug use. REVIEW OF SYSTEMS: As per HPI. Rest of review of systems is negative. PHYSICAL EXAMINATION: GENERAL: The patient is obese, not in acute distress. VITAL SIGNS: Temperature 36.8, pulse 73, respiratory rate 20, blood pressure 185/100, oxygen 95% on room air. HEENT: Pupils equal, round and reactive to light. Oral mucosa moist. NECK: No neck masses. CARDIOVASCULAR: S1 and S2 heard. Regular rate and rhythm. No murmur, no gallop. RESPIRATORY SYSTEM: Normal AP diameter. No accessory muscle use. No wheezing, no crackles. ABDOMEN: Soft, bowel sounds present, nontender, no distention. CENTRAL NERVOUS SYSTEM: Alert and oriented. Speech is clear. No facial droop, can close his eyes tight. Power 5/5 in all extremities. Can lift and hold his lower extremities. No pronator drift. Coordination of movements normal. Sensations are intact. Position sense is somewhat decreased on the left lower extremity, as per patient it is chronic. EXTREMITIES: No edema, no erythema. LABORATORY DATA: WBC 6.7, hemoglobin 15.9, hematocrit 45.3, platelet 203. Sodium 139, chloride 103, bicarbonate 27, BUN 18, creatinine 1.05. Serum glucose 106, calcium 9.7, magnesium 1.9. Troponin high sensitivity 6.1. SARS-CoV-2 rapid test negative. IMAGING DATA: CT of the head without contrast, no acute abnormalities, chronic postoperative changes of the posterior fossa and craniocervical junction, dilatation of the fourth ventricle with stable position of the shunt catheter, unchanged dilatation of the fourth ventricle with stable position of the shunt catheter, chronic cerebellar parenchymal calcifications. EKG: Normal sinus rhythm at a rate of 71, no significant change was found. ASSESSMENT AND PLAN: This is a 56-year-old male with history of astrocytomas at ages 11 and 31 status post resection, history of stroke in 2018, comes because of worsening imbalance, vertigo, and blurred vision. 1. Stroke-like symptoms with worsening imbalance and vertigo and blurred vision, blurred vision is improving. Initial CT of the head is unremarkable. Full stroke workup with CTA of the head and neck, MRI scan, and add Plavix to aspirin. The patient does not want to get any statin. Will follow the lipid profile. Will do speech evaluation, neuro consult in a.m. Monitor in the tele floor, closely monitor. 2. Hypertension: On lisinopril and chlorthalidone at home. Used to be on amlodipine, but he says his pharmacy has not sent the medication for the last six months, not taking it. Will continue his lisinopril and chlorthalidone for now and allow for permissive hypertension and IV labetalol p.r.n. for systolic blood pressure greater than 190 or diastolic blood pressure greater than 105. If needed to add amlodipine at discharge 3. History of depression: Continue his Zoloft. 4. Chronic pain. Continue his home pain medications. 5. Obstructive sleep apnea: On CPAP at bedtime. 6. Prediabetes: Follow HbA1c levels. Follow diabetic diet. 7. Deep venous thrombosis prophylaxis: Sequential compression devices for now. DISPOSITION: Closely monitor in the tele floor. PT/OT prior to discharge. Social service to help with discharge planning. Job ID: [id number] NIEVES
[2021-11-13] MEDS ORDERED: ACETAMINOPHEN 325 MG TAB PO PRN (22:16)
[2021-11-13] MEDS ORDERED: POLYETHYLENE (MIRALAX) 17 GM PACK PO PRN (22:16)
[2021-11-13] MEDS ORDERED: NITROGLYCERIN SL 0.4 MG/TAB TAB SL PRN (22:16)
[2021-11-13] MEDS ORDERED: PHARMACIST DISCHARGE MED REC CONSULT PRN (22:16)
[2021-11-13] MEDS: SODIUM CHLORIDE 0.9% 1000ML 1,000 ML IV SCH (22:16)
[2021-11-13] MEDS ORDERED: ONDANSETRON INJ 2 MG/ML 2 ML VIAL IV PRN (22:16)
[2021-11-13] MEDS ORDERED: GADOBUTROL 65ML VIAL IV ONE (23:15)
[2021-11-13] MEDS ORDERED: OPTIRAY 320 125ml IV ONE (23:49)
[2021-11-14 05:36] LABS: BUN Creatinine Ratio 14.3 (10-20); Chol HDL Ratio 6.9 (0-5); Creatinine Clr Calc Pharmacy 120.1 ml/min; Est GFR (African American) 100.9 ml/min; Est GFR (Non-African American) 87.1 ml/min; Potassium 3.4 mmol/L (3.5-5.1)
[2021-11-14 05:58] LABS: Hematocrit (blood only) 44.2 % (42-52); Hemoglobin 15.2 g/dL (14.0-18.0); Mean Corpuscular Hemoglobin 31.1 pg (25-34); Mean Corpuscular Hgb Conc 34.4 g/dL (32-36); Mean Corpuscular Volume 90.4 fL (80-100); Mean Platelet Volume 10.2 fL (7.4-10.4); Platelet Count 185 K/uL (130-400); RDW Coefficient of Variation 14.2 % (11.5-14.5); RDW Standard Deviation 46.6 fL (36.4-46.3); Red Blood Count 4.89 M/uL (4.7-6.1)
[2021-11-14 06:24] LABS: ALC (manual) 3.17 K/uL (1.2-3.4); ANC (manual) 2.07 K/uL (1.4-6.5); Basophils # (manual) 0.05 K/uL (0-0.2); Basophils % (manual) 0.9 %; Eosinophils % (manual) 1.7 %; Lymphocytes # (manual) 1.76 K/uL (1.2-3.4); Lymphocytes % (manual) 30.4 %; Monocytes # (manual) 0.41 K/uL (0.11-0.59); Neutrophils # (manual) 2.07 K/uL (1.4-6.5); Neutrophils % (manual) 35.7 %; Reactive Lymphocytes # (manual) 1.41 K/uL; Reactive Lymphocytes % (manual) 24.3 %
[2021-11-14] MEDS: ASPIRIN 81 MG ECTAB PO SCH (08:20)
[2021-11-14] MEDS: lisinopril 40 MG TAB PO SCH (08:20)
[2021-11-14] MEDS: CHLORTHALIDONE 25 MG TAB PO SCH (08:20)
[2021-11-14] MEDS: SERTRALINE HCL 100 MG TABLET PO SCH (08:20)
[2021-11-14] MEDS: CLOPIDOGREL BISULFATE 75 MG TAB PO SCH (08:21)
[2021-11-14] MEDS: oxyCODONE/ACETAMINOPHEN 5mg/325mg TAB PO PRN ×2 (08:23→20:51)
--- NOTE | 2021-11-14 08:25 | CT Scan Report ---
CT angio head w con CLINICAL HISTORY: stroke like symptoms . Headache and visual disturbance. Previous craniotomy COMPARISON STUDY: CT brain without contrast from 11/13/2021 CT DOSE: 672.95 mGy.cm TECHNIQUE: CT Angio of the brain was performed.followed by image post processing with coronal, and s agittal MIP reformats. Contrast Volume: Optiray 320, 120 ml FINDINGS: Vascular findings: There is normal enhancement within the internal carotid arteries bilaterally. On the left side, there is normal enhancement noted within the anterior, middle and posterior cerebral a rteries. 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 This represents a congenital anomaly. The distal posterior cerebral artery is normal. The right anterior and middle cer ebral arteries are within normal limits. Nonvascular findings: The patient is again status post posterior fossa craniotomy with stable postsur gical changes present. There is no evidence for an acute infarct or cerebral edema. IMPRESSION: 1. 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 2. Otherwise, normal CTA of the cerebral arteries. 3. Postsurgical changes are again seen involving the posterior fossa. ACT 112: Negative or not required by law. Electronically signed by: Deven Knight M.D. 11/14/2021 8:23 AM
--- NOTE | 2021-11-14 08:30 | CT Scan Report ---
CT angio neck with con CLINICAL HISTORY: stroke like symptoms . Headache and visual disturbances COMPARISON STUDY: No previous studies for comparison. CT DOSE: TECHNIQUE: CT Angio of the neck was performed.followed by image post processing with coronal, and sa gittal MIP reformats.. Stenosis assessment by NASCET criteria. Contrast Volume: Optiray 320, 120 ml FINDINGS: Vascular findings: Right common carotid artery: Patent without significant stenosis. Right internal carotid artery: Patent without significant stenosis. Right vertebral artery: Patent without significant stenosis. The right vertebral artery is dominant w hen compared to the left. Left common carotid artery: Patent without significant stenosis. Left internal carotid artery: Patent without significant stenosis. Left vertebral artery: Patent without significant stenosis. Nonvascular findings: The parotid and submandibular salivary glands appear normal. There is no enlarged cervical adenopathy noted. The airway appears patent. The thyroid gland appears within normal limits. The lung apices ap pear within normal limits. Impression: Essentially negative CT angiogram of the neck with contrast. ACT 112: Negative or not required by law. Electronically signed by: Deven Knight M.D. 11/14/2021 8:27 AM
[2021-11-14 09:35] LABS: Estimated Average Glucose 126 mg/dl
--- NOTE | 2021-11-14 11:34 | Magnetic Resonance Report ---
MR brain wo/w con CLINICAL HISTORY: History of previous surgery for astrocytoma is at ages 11 and 28. Increased weaknes s and dizziness. COMPARISON STUDY: 06/20/[address] brain from 11/13/2021 TECHNIQUE: Multiplanar multisequence images of the brain were performed before and after Gadavist, 1 2 mL of IV contrast. Diffusion weighted imaging and ADC mapping was also performed. FINDINGS: Compared to previous examination, there is no significant interval change. Extra-axial space: There is no evidence for a subdural hematoma, There are no extra-axial fluid kermit ections. Ventricles and cisterns: There is again dilatation of the fourth ventricle which is unchanged. A kena nt is again noted. There is no evidence for midline shift or mass effect. Parenchyma: On noncontrast images, there is no evidence for an acute hemorrhage or infarct. No acute diffusion abnormalities are noted on diffusion weighted imaging or ADC mapping. There is normal yeager -white differentiation. The sulci and gyri appear normal without effacement. The midline structures a re unremarkable. The patient is again status post previous craniotomy. Bilateral cerebellar calcifications are again s een. Punctate foci of absent signal are seen within the cerebellar hemispheres bilaterally on diffusi on weighted imaging. Stable T2 weighted focus within the left cerebellar hemisphere is unchanged. On postcontrast images, there is no evidence for enhancing mass lesion. Osseous structures: The paranasal sinuses are well aerated. The mastoid air cells are well aerated. Soft tissues: No focal soft tissue abnormalities are identified. IMPRESSION: 1. Compared to the previous examination, there is no significant interval change present. 2. No acute abnormalities identified. 3. Postsurgical changes are again seen involving the posterior fossa with bilateral subareolar calcif ications present. 4. There is again dilatation of the fourth ventricle. ACT 112: Negative or not required by law. Electronically signed by: Deven Knight M.D. 11/14/2021 11:32 AM
--- NOTE | 2021-11-14 11:48 | Electrocardiogram Report ---
Test Reason : Blood Pressure : / mmHG Vent. Rate : 071 BPM Atrial Rate : 071 BPM P-R Int : 172 ms QRS Dur : 100 ms QT Int : 380 ms P-R-T Axes : 053 035 050 degrees QTc Int : 412 ms Normal sinus rhythm Normal ECG When compared with ECG of 18-JUN-2018 15:42, No significant change was found Confirmed by Dave Aguilar ([id number]) on 11/14/2021 11:47:51 AM Referred By: REFERRED SELF Confirmed By:Talib Aguilar
--- NOTE | 2021-11-14 12:35 | Communication Note ---
Date of Service: November 14, 2021 Phillip Shaffer is 56 years old is right-handed and was last seen by neurology back in 2018 when he presented with dysarthria and despite a relatively unr emarkable MRI scan, was diagnosed as having a TIA and placed on dual antiplatelet therapy. 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 Apparently on he had a protracted episode of vertigo and this persisted did not resolve and he was brought to the emergency room and admitted for observation The working diagnosis is that of a recurrent vascular event. Most of his symptoms have resolved and he feels he is back to his baseline now with perhaps a little fullness in the right ear but without any real significant new ataxia and with a little subjective oscillopsia that is also baseline Medications at home include low-dose aspirin chlorthalidone lisinopril oxycodone sertraline Viagra for pulmonary hypertension He claims allergies to gabapentin Imaging studies thus far have shown a pretty unremarkable CT angiography of the neck and brain itself along for a congenital anomaly of the posterior circulation as described The MRI scan reveals no significant changes from a prior study done in 2018 and again shows postoperative changes in the posterior fossa and some low-grade white matter changes but no acute new infarction and nothing new in the brainstem itself Family history and social history are as recorded in his admission notes Review of systems is positive for the recent episodes of vertigo and further chronic low-grade ataxia with some vertiginous sensations that have been present for years following his brainstem surgery. He specifically has not had any other neurologic symptoms of note such as the articulatory disturbance to characterize his event in 2018 and denies any numbness or tingling loss of speech or swallowing, loss of consciousness, bowel or bladder dysfunction and denies any new flareup of his underlying systemic illnesses Exam reveals a blood pressure 138/88 pulse is 58 respirations are 14 temperature is 36.7 O2 saturations 94% He is awake alert oriented 3 spheres with clear speech normal eye movements allowing for a little subjective oscillopsia without demonstrable ocular motility disturbance on attempts to gaze in all directions. He states this is typical and has been longstanding and I certainly do not see any extraocular movement disorder that would indicate a brainstem lesion or significant cerebellar issue. Facial motor and strength facial sensation is normal speech is clear gait with the use of an assistive device is slightly dystaxic perhaps with a tendency to go a little more to the right but there is no spasticity no tremor tics choreiform activity drift or pronation sign and reflexes are all present and equal toes are down no Nahomy signs are seen. Sensations grossly intact all testing modalities We are presented now with another dilemma i.e. are the current symptoms due to recurrent vascular events or are they due to an underlying vestibulopathy superimposed upon his chronic problems with disequilibrium related to surgery of his brainstem glioma and radiation therapy Last time we erred on the side of caution by calling these events TIAs and I think I am going to recommend we do this again add Plavix to his current aspirin regimen for 21 days and then continue Plavix alone I am suspicious however that some of this may be due to an underlying vestibulopathy and he may need evaluation at the balance center in [place] at some point in future should these events recur I would suggest that he be observed another day and that he be discharged with a prescription for as needed meclizine to see if that would help vestibular symptoms of recurrent type should they emerge again in the future I will check with him again tomorrow but suspect we will need to see him 1 time in neurology clinic in follow-up The above note was generated utilizing voice recognition technology and may have spelling errors punctuation errors pronoun usage errors and syntax errors
[2021-11-14] MEDS: SODIUM CHLORIDE 0.9% 1000ML 1,000 ML IV SCH (14:24)
[2021-11-15 05:24] LABS: Hematocrit (blood only) 42.4 % (42-52); Hemoglobin 14.6 g/dL (14.0-18.0); Mean Corpuscular Hemoglobin 31.1 pg (25-34); Mean Corpuscular Hgb Conc 34.4 g/dL (32-36); Mean Corpuscular Volume 90.4 fL (80-100); Mean Platelet Volume 10.1 fL (7.4-10.4); Platelet Count 172 K/uL (130-400); RDW Coefficient of Variation 14.3 % (11.5-14.5); RDW Standard Deviation 46.7 fL (36.4-46.3); Red Blood Count 4.69 M/uL (4.7-6.1); White Blood Count 5.75 K/uL (4.8-10.8)
[2021-11-15 05:38] LABS: BUN Creatinine Ratio 12.4 (10-20); Creatinine Clr Calc Pharmacy 112.1 ml/min; Est GFR (African American) 92.8 ml/min; Est GFR (Non-African American) 80.1 ml/min; Potassium 3.7 mmol/L (3.5-5.1)
[2021-11-15 05:52] LABS: ALC (manual) 3.63 K/uL (1.2-3.4); ANC (manual) 1.77 K/uL (1.4-6.5); Basophils # (manual) 0.05 K/uL (0-0.2); Basophils % (manual) 0.9 %; Eosinophils # (manual) 0.05 K/uL (0-0.5); Eosinophils % (manual) 0.9 %; Lymphocytes # (manual) 1.97 K/uL (1.2-3.4); Lymphocytes % (manual) 34.2 %; Monocytes # (manual) 0.25 K/uL (0.11-0.59); Monocytes % (manual) 4.4 %; Neutrophils # (manual) 1.77 K/uL (1.4-6.5); Neutrophils % (manual) 30.7 %; RBC Morphology Unremarkable; Reactive Lymphocytes # (manual) 1.66 K/uL; Reactive Lymphocytes % (manual) 28.9 %
--- NOTE | 2021-11-15 07:37 | Hospitalist Progress Note ---
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 1. Stroke-like symptoms with worsening imbalance and vertigo and blurred vision, blurred vision is improving. Initial CT of the head is unremarkable. Full stroke workup with CTA of the head and neck, MRI scan, and add Plavix to aspirin. The patient does not want to get any statin. Will follow the lipid profile. Will do speech evaluation, neuro consult in a.m. Monitor in the tele floor, closely monitor. Brain MRI currently pending 2. Hypertension: On lisinopril and chlorthalidone at home. Used to be on amlodipine, but he says his pharmacy has not sent the medication for the last six months, not taking it. Will continue his lisinopril and chlorthalidone for now and allow for permissive hypertension and IV labetalol p.r.n. for systolic blood pressure greater than 190 or diastolic blood pressure greater than 105. If needed to add amlodipine at discharge 3. History of depression: Continue his Zoloft. 4. Chronic pain. Continue his home pain medications. 5. Obstructive sleep apnea: On CPAP at bedtime. 6. Prediabetes: Follow HbA1c levels. Follow diabetic diet. 7. Deep venous thrombosis prophylaxis: Sequential compression devices for now. DISPOSITION: pt comes from home, likely to return home after [facility]. [facility] Admission and Anticipated Discharge Date Admission Date: November 13, 2021 Subjective Patient seen in follow-up for vertigo, history of astrocytoma status postresection Patient is currently lying in bed, in no acute distress, reports he is feeling a lot better MRI brain currently pending Neurology consulted Patient otherwise denies any fevers, chills, chest pain, shortness of breath, headache, abdominal pain, nausea vomiting Review of Systems Review of Systems: All systems reviewed & are unremarkable except as noted in Subjective Physical Exam Physical Exam: GENERAL: obese M, not in acute distress. HEENT: Pupils equal, round and reactive to light. Oral mucosa moist. NECK: No neck masses. CARDIOVASCULAR: S1 and S2 heard. Regular rate and rhythm. No murmur, no gallop. RESPIRATORY: Normal AP diameter. No accessory muscle use. No wheezing, no crackles. ABDOMEN: Soft, bowel sounds present, nontender, no distention. NEURO: Alert and oriented. Speech is clear. No facial droop, can close his eyes tight. Power 5/5 in all extremities. Can lift and hold his lower extremities. No pronator drift. Sensations are intact. Position sense is somewhat decreased on the left lower extremity, as per patient it is chronic. EXTREMITIES: No edema, no erythema. Results & Data Results & Data ([facility]) Vital Signs (Past 12 Hours) Vital Signs Temp Pulse Pulse Resp BP Pulse Ox 11/14/21 23:38 36.7 C 56 L 16 163/96 H 95 11/14/21 23:12 61 18 93 11/14/21 23:03 63 11/14/21 20:39 65 11/14/21 20:00 36.6 C 78 16 165/91 H 95
[2021-11-15] MEDS: oxyCODONE/ACETAMINOPHEN 5mg/325mg TAB PO PRN (09:04)
[2021-11-15] MEDS: SERTRALINE HCL 100 MG TABLET PO SCH (09:05)
[2021-11-15] MEDS: lisinopril 40 MG TAB PO SCH (09:05)
[2021-11-15] MEDS: CHLORTHALIDONE 25 MG TAB PO SCH (09:05)
[2021-11-15] MEDS: CLOPIDOGREL BISULFATE 75 MG TAB PO SCH (09:05)
[2021-11-15] MEDS: ASPIRIN 81 MG ECTAB PO SCH (09:05)
--- NOTE | 2021-11-15 11:35 | Communication Note ---
Date of Service: November 15, 2021 Phillip is stable. The MRI report indicates no change from the prior study of 2018. There is therefore no evidence for a new process involving the posterior fossa and specifically no evidence for a vascular event Exam khan he has mildly dysarthric speech which is baseline and talks about having little disequilibrium but feels all of this is pretty much where he has been following his posterior fossa surgery for the astrocytoma The diagnosis here remains unestablished. We are going with the presumptive diagnosis of vertebrobasilar TIA although I have significant doubts about this We are going to err perhaps on the side of caution by using 21 days of dual antiplatelet therapy and then converting him to Plavix alone. The current series of events occurred on aspirin and we could deem him an aspirin failure based on the history I am not certain this is not a vestibulopathy as a lot of the historical elements were more consistent with this diagnosis than a vascular 1 He may need evaluated at the balance center should these events recur We will arrange to see him in our office in about a month routine post hospital discharge neurologic follow-up For now in my opinion he could be discharged unless her medical issues that are keeping him here in the hospital Onesimo Whitten MD The above note was generated utilizing voice recognition technology and may have spelling errors punctuation errors pronoun usage errors and syntax errors
--- NOTE | 2021-11-15 11:37 | Hospitalist Progress Note ---
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 1. Stroke-like symptoms with worsening imbalance and vertigo and blurred vision , blurred vision is improving. Initial CT of the head is unremarkable. Full stroke workup with CTA of the head and neck, MRI scan, and add Plavix to aspirin. The patient does not want to get any statin. Will follow the lipid profile. Will do speech evaluation, neuro consult in a.m. Monitor in the tele floor, closely monitor. Brain MRI - IMPRESSION: 1. Compared to the previous examination, there is no significant interval change present. 2. No acute abnormalities identified. 3. Postsurgical changes are again seen involving the posterior fossa with bilateral subareolar calcifications present. 4. There is again dilatation of the fourth ventricle. CT head and neck IMPRESSION: 1. 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 2. Otherwise, normal CTA of the cerebral arteries. 3. Postsurgical changes are again seen involving the posterior fossa. Neurology consulted We are going with the presumptive diagnosis of vertebrobasilar TIA although I have significant doubts about this We are going to err perhaps on the side of caution by using 21 days of dual antiplatelet therapy and then converting him to Plavix alone. The current series of events occurred on aspirin and we could deem him an aspirin failure based on the history I am not certain this is not a vestibulopathy as a lot of the historical elements were more consistent with this diagnosis than a vascular 1 He may need evaluated at the balance center should these events recur We will arrange to see him in our office in about a month routine post hospital discharge neurologic follow-up 2. Hypertension: On lisinopril and chlorthalidone at home. Used to be on amlodipine, but he says his pharmacy has not sent the medication for the last six months, not taking it. Will continue his lisinopril and chlorthalidone for now and allow for permissive hypertension and IV labetalol p.r.n. for systolic blood pressure over 190 or diastolic blood pressure over 105. Will add amlodipine. Recommend follow up with PCP. 3. History of depression: Continue his Zoloft. 4. Chronic pain. Continue his home pain medications. 5. Obstructive sleep apnea: On CPAP at bedtime. 6. Prediabetes: Current HbA1c 6.0% levels. Follow diabetic diet. DVT prophylaxis: Sequential compression devices for now. DISPOSITION:Plan to DC home Admission and Anticipated Discharge Date Admission Date: November 13, 2021 Subjective Patient seen in follow-up for vertigo, history of astrocytoma status postresection Patient is currently sitting in chair, in no acute distress, reports he is feeling a lot better. He is especially relieved, that MRI did not show anything concerning given his history. Patient otherwise denies any fevers, chills, chest pain, shortness of breath, headache, abdominal pain, nausea vomiting Neurology consulted Review of Systems Review of Systems: All systems reviewed & are unremarkable except as noted in Subjective Physical Exam Physical Exam: GENERAL: obese M, not in acute distress. HEENT: Pupils equal, round and reactive to light. Oral mucosa moist. NECK: No neck masses. CARDIOVASCULAR: S1 and S2 heard. Regular rate and rhythm. No murmur, no gallop. RESPIRATORY: Normal AP diameter. No accessory muscle use. No wheezing, no crackles. ABDOMEN: Soft, bowel sounds present, nontender, no distention. NEURO: Alert and oriented. Speech is clear. No facial droop, can close his eyes tight. Power 5/5 in all extremities. Can lift and hold his lower extremities. No pronator drift. Sensations are intact. Position sense is somewhat decreased on the left lower extremity, as per patient it is chronic. EXTREMITIES: No edema, no erythema. Results & Data Results & Data ([facility]) Vital Signs (Past 12 Hours) Vital Signs Temp Pulse Pulse Resp BP BP Pulse Ox 11/15/21 11:00 59 L 13 11/15/21 10:00 59 L 21 96 11/15/21 09:57 66 14 167/88 H 11/15/21 09:00 65 16 11/15/21 08:55 66 12 187/109 H 11/15/21 08:00 36.7 C 63 12 11/15/21 07:00 56 L 15 11/15/21 03:31 56 L 14 94 11/15/21 03:25 36.7 C 68 16 152/88 H 96 11/15/21 00:00 57 L 11/14/21 23:38 36.7 C 56 L 16 163/96 H 95 Laboratory Results 11/15/21 11/15/21 11/14/21 Range/Units 04:47 04:47 20:55 WBC 5.75 (4.8-10.8) K/uL RBC 4.69 L (4.7-6.1) M/uL Hgb 14.6 (14.0-18.0) g/dL Hct 42.4 (42-52) % MCV 90.4 (80-100) fL MCH 31.1 (25-34) pg MCHC 34.4 (32-36) g/dL RDW Std Deviation 46.7 H (36.4-46.3) fL RDW Coeff of Manish 14.3 (11.5-14.5) % Plt Count 172 (130-400) K/uL MPV 10.1 (7.4-10.4) fL Neutrophils % (Manual) 30.7 % Lymphocytes % (Manual) 34.2 % Reactive Lymphs % (Man) 28.9 % Monocytes % (Manual) 4.4 % Eosinophils % (Manual) 0.9 % Basophils % (Manual) 0.9 % Neutrophils # (Manual) 1.77 (1.4-6.5) K/uL Total Absolute Neuts 1.77 (1.4-6.5) K/uL Lymphocytes # (Manual) 1.97 (1.2-3.4) K/uL Reactive Lymphs # 1.66 K/uL Total Abs Lymphocytes 3.63 H (1.2-3.4) K/uL Monocytes # (Manual) 0.25 (0.11-0.59) K/uL Eosinophils # (Manual) 0.05 (0-0.5) K/uL Basophils # (Manual) 0.05 (0-0.2) K/uL RBC Morphology Unremarkable Sodium 139 (136-145) mmol/L Potassium 3.7 (3.5-5.1) mmol/L Chloride 104 (98-107) mmol/L Carbon Dioxide 29 (21-32) mmol/L Anion Gap 6 (3-11) BUN 13 (6-23) mg/dl Creatinine 1.05 (0.6-1.4) mg/dl Est Cr Clr Drug Dosing 112.1 ml/min Est GFR ( Amer) 92.8 ml/min Est GFR (Non-Af Amer) 80.1 ml/min BUN/Creatinine Ratio 12.4 (10-20) Glucose 100 H (70-99(Fasting)) mg/dl POC Glucose 98 (70-99) mg/dl Calcium 9.0 (8.5-10.1) mg/dl 11/14/21 Range/Units 11:45 WBC (4.8-10.8) K/uL RBC (4.7-6.1) M/uL Hgb (14.0-18.0) g/dL Hct (42-52) % MCV (80-100) fL MCH (25-34) pg MCHC (32-36) g/dL RDW Std Deviation (36.4-46.3) fL RDW Coeff of Manish (11.5-14.5) % Plt Count (130-400) K/uL MPV (7.4-10.4) fL Neutrophils % (Manual) % Lymphocytes % (Manual) % Reactive Lymphs % (Man) % Monocytes % (Manual) % Eosinophils % (Manual) % Basophils % (Manual) % Neutrophils # (Manual) (1.4-6.5) K/uL Total Absolute Neuts (1.4-6.5) K/uL Lymphocytes # (Manual) (1.2-3.4) K/uL Reactive Lymphs # K/uL Total Abs Lymphocytes (1.2-3.4) K/uL Monocytes # (Manual) (0.11-0.59) K/uL Eosinophils # (Manual) (0-0.5) K/uL Basophils # (Manual) (0-0.2) K/uL RBC Morphology Sodium (136-145) mmol/L Potassium (3.5-5.1) mmol/L Chloride (98-107) mmol/L Carbon Dioxide (21-32) mmol/L Anion Gap (3-11) BUN (6-23) mg/dl Creatinine (0.6-1.4) mg/dl Est Cr Clr Drug Dosing ml/min Est GFR ( Amer) ml/min Est GFR (Non-Af Amer) ml/min BUN/Creatinine Ratio (10-20) Glucose (70-99(Fasting)) mg/dl POC Glucose 100 H (70-99) mg/dl Calcium (8.5-10.1) mg/dl Medications Administered Current Inpatient Medications Acetaminophen (Acetaminophen 325 Mg Tab) 650 mg PO Q4H PRN PRN Reason: Pain or Fever Stop: 12/13/21 22:15 Last Admin: 11/14/21 15:07 Dose: 650 mg Documented by: Aspirin (Aspirin 81 Mg Ectab) 81 mg PO [facility] Stop: 12/14/21 08:59 Last Admin: 11/15/21 09:05 Dose: 81 mg Documented by: Chlorthalidone (Chlorthalidone 25 Mg Tab) 12.5 mg PO [facility] Stop: 12/14/21 08:59 Last Admin: 11/15/21 09:05 Dose: 12.5 mg Documented by: Clopidogrel Bisulfate (Clopidogrel Bisulfate 75 Mg Tab) 75 mg PO [facility] Stop: 12/14/21 08:59 Last Admin: 11/15/21 09:05 Dose: 75 mg Documented by: Labetalol HCl (Labetalol Hcl Iv 5 Mg/Ml 20ml) 10 mg IV Q4H PRN PRN Reason: Hypertension Stop: 12/13/21 20:51 Last Admin: 11/13/21 21:19 Dose: 10 mg Documented by: Lisinopril (Lisinopril 40 Mg Tab) 40 mg PO [facility] Stop: 12/14/21 08:59 Last Admin: 11/15/21 09:05 Dose: 40 mg Documented by: Miscellaneous Information (Pharmacist Discharge Med Rec Consult) 1 ea N/A UD PRN PRN Reason: Consult Stop: 12/13/21 22:15 Nitroglycerin (Nitroglycerin Sl 0.4 Mg/Tab Tab) 0.4 mg SL UD PRN PRN Reason: Chest Pain Stop: 12/13/21 22:15 Ondansetron HCl (Ondansetron Inj 2 Mg/Ml 2 Ml Vial) 4 mg IV Q6H PRN PRN Reason: Nausea Stop: 12/13/21 22:15 Oxycodone/Acetaminophen (Oxycodone/Acetaminophen 5mg/325mg Tab) 1 tab PO BID PRN PRN Reason: Pain, Severe Stop: 11/27/21 22:15 Last Admin: 11/15/21 09:04 Dose: 1 tab Documented by: Polyethylene Glycol (Polyethylene (Miralax) 17 Gm Pack) 17 gm PO DAILY PRN PRN Reason: Constipation Stop: 12/13/21 22:15 Sertraline HCl (Sertraline Hcl 100 Mg Tablet) [facility] Stop: 12/14/21 08:59 Last Admin: 11/15/21 09:05 Dose: 100 mg Documented by:
[2021-11-15] MEDS ORDERED: STROKE PATIENT DISCHARGE STA (12:28)
--- NOTE | 2021-11-15 12:29 | Discharge Summary ---
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 The patient was on statin, but he states he is not taking it because he is worried about his liver damage and does not want to take it. The patient has chronic balance issues, but last one week he is having room spinning and more imbalance and some blurred vision and double vision, that is the reason he came here. He says his double vision is better. His initial CAT scan was negative. Currently, resting comfortably and hemodynamically stable. Blood pressure is running high. Denies any headache currently. . No runny nose, no sore throat, no cough, no fever, no chills, no chest pain, no shortness of breath, no nausea, no abdominal pain. Normal bowel and bladder movements. No swelling in the legs. He is swallowing okay. Admission Exam Per Admitting Provider GENERAL: The patient is obese, not in acute distress. VITAL SIGNS: Temperature 36.8, pulse 73, respiratory rate 20, blood pressure 185/100, oxygen 95% on room air. HEENT: Pupils equal, round and reactive to light. Oral mucosa moist. NECK: No neck masses. CARDIOVASCULAR: S1 and S2 heard. Regular rate and rhythm. No murmur, no gallop. RESPIRATORY SYSTEM: Normal AP diameter. No accessory muscle use. No wheezing, no crackles. ABDOMEN: Soft, bowel sounds present, nontender, no distention. CENTRAL NERVOUS SYSTEM: Alert and oriented. Speech is clear. No facial droop, can close his eyes tight. Power 5/5 in all extremities. Can lift and hold his lower extremities. No pronator drift. Coordination of movements normal. Sensations are intact. Position sense is somewhat decreased on the left lower extremity, as per patient it is chronic. EXTREMITIES: No edema, no erythema. Principal Diagnosis TIA vs. vestibulopathy Hx of astrocytoma s/p surgery Discharge Exam GENERAL: obese M, not in acute distress. HEENT: Pupils equal, round and reactive to light. Oral mucosa moist. NECK: No neck masses. CARDIOVASCULAR: S1 and S2 heard. Regular rate and rhythm. No murmur, no gallop. RESPIRATORY: Normal AP diameter. No accessory muscle use. No wheezing, no crackles. ABDOMEN: Soft, bowel sounds present, nontender, no distention. NEURO: Alert and oriented. Speech is clear. No facial droop, can close his eyes tight. Power 5/5 in all extremities. Can lift and hold his lower extremities. No pronator drift. Sensations are intact. Position sense is somewhat decreased on the left lower extremity, as per patient it is chronic. EXTREMITIES: No edema, no erythema. Discharge Data Allergies Allergy/AdvReac Type Severity Reaction Status Date / Time gabapentin AdvReac Intermediate Did not Verified 11/13/21 17:31 feel well Consultations 11/13/21 19:28 ED Decision to Admit Stat 11/14/21 08:00 Consult Neurology Routine Ordered Studies 11/13/21 17:19 CT head/brain wo con Stat IMPRESSION: 1. No acute intracranial abnormality. 2. Chronic postoperative changes of the posterior fossa and craniocervical junction redemonstrated. There is unchanged dilation of the fourth ventricle with stable positioning of the shunt catheter. 3. Chronic cerebellar parenchymal calcifications. 11/13/21 22:16 CT angio head w con Urgent CT angio neck with con Urgent IMPRESSION: 1. 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 2. Otherwise, normal CTA of the cerebral arteries. 3. Postsurgical changes are again seen involving the posterior fossa. MR brain wo/w con Urgent IMPRESSION: 1. Compared to the previous examination, there is no significant interval change present. 2. No acute abnormalities identified. 3. Postsurgical changes are again seen involving the posterior fossa with bilateral subareolar calcifications present. 4. There is again dilatation of the fourth ventricle. Hospital Course (1) Vertigo: (2) Ataxia: This is a 56-year-old male with history of astrocytomas at ages 11 and 31 status post resection, history of stroke in 2018, comes because of worsening imbalance, vertigo, and blurred vision. 1. Stroke-like symptoms with worsening imbalance and vertigo and blurred vision , blurred vision is improving. Initial CT of the head is unremarkable. Full stroke workup with CTA of the head and neck, MRI scan, and add Plavix to aspirin. The patient does not want to get any statin. Will follow the lipid profile. Will do speech evaluation, neuro consult in a.m. Monitor in the tele floor, closely monitor. Brain MRI - IMPRESSION: 1. Compared to the previous examination, there is no significant interval change present. 2. No acute abnormalities identified. 3. Postsurgical changes are again seen involving the posterior fossa with bilateral subareolar calcifications present. 4. There is again dilatation of the fourth ventricle. CT head and neck IMPRESSION: 1. 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 2. Otherwise, normal CTA of the cerebral arteries. 3. Postsurgical changes are again seen involving the posterior fossa. Neurology consulted We are going with the presumptive diagnosis of vertebrobasilar TIA although I have significant doubts about this We are going to err perhaps on the side of caution by using 21 days of dual antiplatelet therapy and then converting him to Plavix alone. The current series of events occurred on aspirin and we could deem him an aspirin failure based on the history I am not certain this is not a vestibulopathy as a lot of the historical elements were more consistent with this diagnosis than a vascular 1 He may need evaluated at the balance center should these events recur We will arrange to see him in our office in about a month routine post hospital discharge neurologic follow-up 2. Hypertension: On lisinopril and chlorthalidone at home. Used to be on amlodipine, but he says his pharmacy has not sent the medication for the last six months, not taking it. Will continue his lisinopril and chlorthalidone for now and allow for permissive hypertension and IV labetalol p.r.n. for systolic blood pressure over 190 or diastolic blood pressure over 105. Will add amlodipine. Recommend follow up with PCP. 3. History of depression: Continue his Zoloft. 4. Chronic pain. Continue his home pain medications. 5. Obstructive sleep apnea: On CPAP at bedtime. 6. Prediabetes: Current HbA1c 6.0% levels. Follow diabetic diet. DISPOSITION:Plan to DC home Total Time Total Time Spent Total Time Spent (In Minutes): 40 Discharge Plan Discharge Items Patient Disposition: Home - Self-Care Reason For Visit: VERTIGO Discharge Diagnosis: TIA vs. vestibulopathy Hx of astrocytoma s/p surgery Activity: Per Instructions section Non-emergency contact: Primary Care Provider and Neurologist Call non-emergency contact if: you have any medication questions and your symptoms worsen Follow-up/Referrals: Jere Carrasco MD [Primary Care Provider] - Diet: Carb Consistent or DM2 and Heart Healthy Addtl Attending Provider Instructions: Follow-up primary care doctor and neurology. Follow-up with primary care doctor within 1 to 2 weeks. You will be contacted about your appointment with neurology. Take aspirin and Plavix for 21 days, then continue to take Plavix alone. For dizziness, take meclizine, as prescribed as needed. For blood pressure, prescription for amlodipine was also sent. Discuss this further with your primary care doctor. Pending Studies at Discharge: No Stand-Alone Forms: My [facility], Smoking Cessation Medications and DC Order Prescriptions: New clopidogrel 75 mg Tablet 75 mg PO QAM Qty: 30 RF: 0 amlodipine 5 mg tablet 5 mg PO DAILY Qty: 30 RF: 0 meclizine 25 mg tablet 25 mg PO TID PRN (Reason: dizziness) Qty: 14 RF: 0 Continued lisinopril 40 mg Tablet 40 mg PO QAM RF: 0 sildenafil (pulm.hypertension) 20 mg Tablet 20 mg PO DIRECTED PRN (Reason: Erectile Dysfunction) RF: 0 sertraline 100 mg tablet 100 mg PO QAM RF: 0 chlorthalidone 25 mg tablet 12.5 mg PO QAM RF: 0 oxycodone-acetaminophen 5-325 mg tablet 1 tab PO BID PRN (Reason: Pain, Severe) RF: 0 aspirin [Aspirin Low Dose] 81 mg Tablet,Delayed Release (Dr/Ec) 81 mg PO QAM RF: 0 Discharge Orders: Discharge Order (Routine); Ordered 11/15/21 Ordered By: Srinivasa Samuel/Other Patient Handouts: Prediabetes, 5 Steps for Eating Healthier Admission Data Admit Date/Time: 11/13/21 20:51 Attending Provider: Srinivasa Singh Admit Provider: Yefri Espino Primary Care Provider: Jere Carrasco Other Providers: Yefri Espino ; Ely Whalen ; Onesimo Whitten ; Ely Giles ; xAel Cates
--- NOTE | 2021-11-15 12:49 | Pharmacy Report ---
Pharmacist Stroke Counseling - Date of Service November 15, 2021 - Scope: Pharmacy has been consulted to provide medication discharge counseling for this patient admitted with potential transient ischemic attack as per the Pharmacist Discharge Counseling for Stroke Patients Protocol. - Medications on Discharge: Home Medications Medication Instructions Recorded Confirmed lisinopril 40 mg tablet 40 mg PO QAM 02/24/19 11/13/21 sildenafil (pulm.hypertension) 20 20 mg PO DIRECTED PRN 02/24/19 11/13/21 mg tablet aspirin 81 mg tablet,delayed 81 mg PO QAM 05/22/20 11/13/21 release (Aspirin Low Dose) chlorthalidone 25 mg tablet 12.5 mg PO QAM 05/22/20 11/13/21 oxycodone-acetaminophen 5 mg-325 1 tab PO BID PRN 05/22/20 11/13/21 mg tablet sertraline 100 mg tablet 100 mg PO QAM 05/22/20 11/13/21 New Rx's Medication Instructions Recorded amlodipine 5 mg tablet 5 mg PO DAILY #30 tab 11/15/21 clopidogrel 75 mg tablet 75 mg PO QAM #30 tab 11/15/21 meclizine 25 mg tablet 25 mg PO TID PRN #14 tab 11/15/21 - Action: The above medications, specifically ones for stroke treatment/prophylaxis, have been reviewed in detail with the patient and/or patient vendor representatives(s) prior to discharge. This includes indication, common adverse reactions, drug interactions, and medication administration. Medication counseling has been employed using the teach-back method to ensure understanding. - Outcome: The patient and/or patient vendor representatives(s) have demonstrated understanding of the medications. Additional comments: * Spoke with patient via telephone prior to discharge. Questionable TIA; needs Neurology f/u * Patient being started on Plavix + aspirin x 21 days, then Plavix 75mg daily monotherapy thereafter. He is aware. Cautioned incr' risk for bleeding/bruising with DAPT. * He denies using NSAID's prn; encouraged him to continue to avoid due to incr' risk for bleeding/bruising with anti-platelets and also can incr' BP * Amlodipine being added to regimen due to uncontrolled HTN. Advised to monitor home BP's and f/u with his provider. Thank you for allowing pharmacy to be involved in the care of this patient. Please call [phone] with any additional questions
== END 2021-11-15 14:06 | disposition home or self-care (01) | DRG 69 ==
LOC: ED 16:49 → 1E 20:51 → INTOOBSV 20:51 → 1E 21:40